=== PATIENT | female | born 1990 | race American Indian/Alaskan Native ===

== ENCOUNTER 2018-11-02 22:34 | Emergency (ER) | payer MEDICAID ==
[2018-11-03 00:17] VITALS: BP 129/68
[2018-11-03] MEDS ORDERED: TYLENOL PO ONE (00:22)
[2018-11-03] MEDS ORDERED: TYLENOL ONE (00:23)
[2018-11-03 00:59] LABS: Basophils # (Auto) 0.1 K/mm3 (0.0-0.1); Basophils % (Auto) 0.7 % (0.0-1.8); Eosinophils # (Auto) 0.1 K/mm3 (0.0-0.4); Eosinophils % (Auto) 0.9 % (0.0-4.3); Hematocrit 22.1 % (30.3-42.9); Hemoglobin 8.3 gm/dl (10.1-14.3); Lymphocytes # (Auto) 1.5 K/mm3 (1.2-5.4); Lymphocytes % (Auto) 15.7 % (13.4-35.0); Mean Corpuscular Volume 85 fl (79-97); Monocytes # (Auto) 0.8 K/mm3 (0.0-0.8); Monocytes % (Auto) 8.5 % (0.0-7.3); Platelet Count 322 K/mm3 (140-440); Red Cell Distribution Width 19.2 % (13.2-15.2)
[2018-11-03 01:27] LABS: Alanine Aminotransferase 16 units/L (7-56); Albumin 4.4 g/dL (3.9-5); BUN/Creatinine Ratio 22; Blood Urea Nitrogen 11 mg/dL (7-17); Calcium 8.8 mg/dL (8.4-10.2); Hemolysis Index 10
[2018-11-03 01:49] LABS: Mean Corpuscular HGB Conc 37 % (30-34)
--- NOTE | 2018-11-06 16:51 | Emergency Department Report ---
Blank Doc - Documentation Documentation: Patient left the emergency department before being seen by a provider
== END 2018-11-03 05:00 | disposition left against medical advice (07) ==
LOC: ED 22:34
DX: R53.83 Other fatigue (principal); Z53.21 Procedure and treatment not carried out due to patient leaving prior to being seen by health care provider
CPT/HCPCS: 36415; 80053; 85025; 93005; 93010

== ENCOUNTER 2018-11-03 16:27 | Inpatient (IN) | payer MEDICAID ==
--- NOTE | 2018-11-03 17:08 | Event Note ---
ED Screening Note Date of service: 11/03/18 Time: 17:08 ED Screening Note: This is a 28 y.o. F. that presents to the ER with fever and fatigue. PMH of anemia Patient came to the ER last night and LWT. This initial assessment/diagnostic orders/clinical plan/treatment(s) is/are subject to change based on patients health status, clinical progression and re- assessment by fellow clinical providers in the ED. Further treatment and workup at subsequent clinical providers discretion. Patient/guardian urged not to elope from the ED as their condition may be serious if not clinically assessed and managed. Initial orders include: Review Labs from yesterday
[2018-11-03] MEDS ORDERED: NACL 0.9% 1000 ML IV ONE (20:09)
[2018-11-03] MEDS ORDERED: TYLENOL PO ONE (20:23)
--- NOTE | 2018-11-03 20:37 | Emergency Department Report ---
ED Fever HPI - General Chief Complaint: Fever Stated Complaint: FEVER/CHILLS Time Seen by Provider: 11/03/18 17:08 Source: patient, old records Exam Limitations: no limitations - History of Present Illness Initial Comments: 28-year-old female with a past medical history of previous cholecystectomy due to gallstones as a child presents to the hospital with complaints of fever, body aches, and chills for the past 4 days. Generalized aches are rated 8/10 and intensity. Patient complains of generalized fatigue. She denies cough, shortness of breath, chest pain, back pain, nausea, vomiting, diarrhea, dysuria, recent travel, or known sick contacts. Her primary care doctor is affiliated with [facility]. Patient was here yesterday and had labs drawn but left prior to M.D. evaluation. She drinks etoh on occasion and denies recent tylenol ingestion ED Review of Systems ROS: Stated complaint: FEVER/CHILLS Other details as noted in HPI Comment: All other systems reviewed and negative ED Past Medical Hx - Past Medical History Previous Medical History?: No - Surgical History Past Surgical History?: Yes Hx Cholecystectomy: Yes - Social History Smoking Status: Never Smoker Substance Use Type: None - Medications Home Medications: Home Medications Medication Instructions Recorded Confirmed Last Taken Type No Known Home Medications [No 11/03/18 11/03/18 Unknown History Reported Home Medications] ED Physical Exam - General Limitations: No Limitations - Other Other exam information: General: No limitations, patient is alert in no acute distress Head exam: Atraumatic, normocephalic Eyes exam: Jaundice/icteric sclera ENT: Moist mucous membrane Neck exam: Normal inspection, full range of motion, no meningismus nontender Respiratory exam: Clear to auscultation bilateral, no wheezes, rales, crackles Cardiovascular: Normal rate and rhythm, normal heart sounds Abdomen: Soft, nondistended, and nontender, with normal bowel sounds, no rebound, or guarding Extremity: Full range of motion, bilateral ankle swelling, Back: Normal Inspection, full range of motion, no tenderness Neurologic: Alert, oriented x3, cranial nerves intact, no motor or sensory deficit Psychiatric: normal affect, normal mood Skin: Warm, dry, intact ED Course Vital Signs 11/03/18 11/03/18 11/03/18 17:03 20:02 20:33 Temperature 100 F H 99.3 F Pulse Rate 128 H 113 H Respiratory 18 16 16 Rate Blood Pressure 114/93 Blood Pressure 119/67 [Left] O2 Sat by Pulse 100 100 Oximetry 11/03/18 11/03/18 11/03/18 21:00 21:33 22:00 Temperature Pulse Rate 115 H 112 H Respiratory 22 18 26 H Rate Blood Pressure 119/67 112/63 Blood Pressure [Left] O2 Sat by Pulse 100 100 Oximetry 11/03/18 11/04/18 11/04/18 23:53 02:00 04:12 Temperature 98.7 F Pulse Rate 103 H 108 H 106 H Respiratory 19 20 16 Rate Blood Pressure 112/57 112/57 116/43 Blood Pressure [Left] O2 Sat by Pulse 99 99 100 Oximetry - Consultations Consultation #1: 11/04/18 00:51 case d/w Dr Julio, agrees finding of both a mixed picture for hemolysis and possible primary liver problem. Type and screen and yennifer added to labs. Schistocytes ordered and are still pending. 11/04/18 01:21 DR Carolina, GI thinks findings more suggestive of hemolyitc anemia as opposed to primary liver issue. ED Medical Decision Making - Lab Data Result diagrams: 11/04/18 02:29 11/04/18 03:29 Lab Results 11/03/18 11/03/18 11/03/18 Range/Units 20:17 20:17 20:17 WBC (4.5-11.0) K/mm3 RBC (3.65-5.03) M/mm3 Hgb Hct (30.3-42.9) % MCV (79-97) fl MCH MCHC RDW (13.2-15.2) % Plt Count (140-440) K/mm3 Lymph % (Auto) (13.4-35.0) % [place] % (Auto) (0.0-7.3) % Eos % (Auto) (0.0-4.3) % Baso % (Auto) (0.0-1.8) % Lymph # (1.2-5.4) K/mm3 [place] # (0.0-0.8) K/mm3 Eos # (0.0-0.4) K/mm3 Baso # (0.0-0.1) K/mm3 Add Manual Diff Total Counted Seg Neutrophils % (40.0-70.0) % Seg Neuts % (Manual) (40.0-70.0) % Band Neutrophils % % Lymphocytes % (Manual) (13.4-35.0) % Reactive Lymphs % (Man) % Monocytes % (Manual) (0.0-7.3) % Eosinophils % (Manual) (0.0-4.3) % Basophils % (Manual) (0.0-1.8) % Metamyelocytes % % Myelocytes % % Promyelocytes % % Blast Cells % % Nucleated RBC % Seg Neutrophils # (1.8-7.7) K/mm3 Seg Neutrophils # Man (1.8-7.7) K/mm3 Band Neutrophils # K/mm3 Lymphocytes # (Manual) (1.2-5.4) K/mm3 Abs React Lymphs (Man) K/mm3 Monocytes # (Manual) (0.0-0.8) K/mm3 Eosinophils # (Manual) (0.0-0.4) K/mm3 Basophils # (Manual) (0.0-0.1) K/mm3 Metamyelocytes # K/mm3 Myelocytes # K/mm3 Promyelocytes # K/mm3 Blast Cells # K/mm3 WBC Morphology Hypersegmented Neuts Hyposegmented Neuts Hypogranular Neuts Smudge Cells Toxic Granulation Toxic Vacuolation Dohle Bodies Pelger-Huet Anomaly Sue Rods Platelet Estimate Clumped Platelets Plt Clumps, EDTA Large Platelets Giant Platelets Platelet Satelliting Plt Morphology Comment RBC Morphology Dimorphic RBCs Polychromasia Hypochromasia Poikilocytosis Anisocytosis Microcytosis Macrocytosis Spherocytes Pappenheimer Bodies Sickle Cells Target Cells Tear Drop Cells Ovalocytes Helmet Cells [place] Bodies [place] Rings [place] Cells Bite Cells Crenated Cell Elliptocytes Acanthocytes (Spur) Rouleaux Hemoglobin C Crystals Schistocytes Malaria parasites Percent Retic (0.78-2.58) % Neal Bodies Hem Pathologist Commnt PT 14.4 (12.2-14.9) Sec. INR 1.15 H (0.87-1.13) APTT 24.4 (24.2-36.6) Sec. VBG pH (7.320-7.420) Sodium (137-145) mmol/L Potassium (3.6-5.0) mmol/L Chloride (98-107) mmol/L Carbon Dioxide (22-30) mmol/L Anion Gap mmol/L BUN (7-17) mg/dL Creatinine (0.7-1.2) mg/dL Estimated GFR ml/min BUN/Creatinine Ratio % Glucose (65-100) mg/dL Lactic Acid 1.20 (0.7-2.0) mmol/L Calcium (8.4-10.2) mg/dL Magnesium (1.7-2.3) mg/dL Total Bilirubin (0.1-1.2) mg/dL Direct Bilirubin (0-0.2) mg/dL Indirect Bilirubin mg/dL AST (5-40) units/L ALT (7-56) units/L Alkaline Phosphatase (35-129) units/L Lactate Dehydrogenase (91-180) units/L Total Protein (6.3-8.2) g/dL Albumin (3.9-5) g/dL Albumin/Globulin Ratio % Lipase (13-60) units/L HCG, Qual Negative (Negative) Urine Color (Yellow) Urine Turbidity (Clear) Urine pH (5.0-7.0) Ur Specific [place] (1.003-1.030) Urine Protein (Negative) mg/dL Urine Glucose (UA) (Negative) mg/dL Urine Ketones (Negative) mg/dL Urine Blood (Negative) Urine Nitrite (Negative) Urine Bilirubin (Negative) Urine Urobilinogen (<2.0) mg/dL Ur Leukocyte Esterase (Negative) Urine WBC (Auto) (0.0-6.0) /HPF Urine RBC (Auto) (0.0-6.0) /HPF U Epithel Cells (Auto) (0-13.0) /HPF Urine Bacteria (Auto) (Negative) /HPF Urine Mucus /HPF HIV 1&2 Antibody Rapid (Non React) HIV P24 Antigen (Non React) Schistocytes Smear Blood Type Antibody Screen Direct Antiglob Test PATRIC, Poly Interpret 11/03/18 11/03/18 11/03/18 Range/Units 20:17 20:17 20:17 WBC (4.5-11.0) K/mm3 RBC (3.65-5.03) M/mm3 Hgb Hct (30.3-42.9) % MCV (79-97) fl MCH MCHC RDW (13.2-15.2) % Plt Count (140-440) K/mm3 Lymph % (Auto) (13.4-35.0) % [place] % (Auto) (0.0-7.3) % Eos % (Auto) (0.0-4.3) % Baso % (Auto) (0.0-1.8) % Lymph # (1.2-5.4) K/mm3 [place] # (0.0-0.8) K/mm3 Eos # (0.0-0.4) K/mm3 Baso # (0.0-0.1) K/mm3 Add Manual Diff Total Counted Seg Neutrophils % (40.0-70.0) % Seg Neuts % (Manual) (40.0-70.0) % Band Neutrophils % % Lymphocytes % (Manual) (13.4-35.0) % Reactive Lymphs % (Man) % Monocytes % (Manual) (0.0-7.3) % Eosinophils % (Manual) (0.0-4.3) % Basophils % (Manual) (0.0-1.8) % Metamyelocytes % % Myelocytes % % Promyelocytes % % Blast Cells % % Nucleated RBC % Seg Neutrophils # (1.8-7.7) K/mm3 Seg Neutrophils # Man (1.8-7.7) K/mm3 Band Neutrophils # K/mm3 Lymphocytes # (Manual) (1.2-5.4) K/mm3 Abs React Lymphs (Man) K/mm3 Monocytes # (Manual) (0.0-0.8) K/mm3 Eosinophils # (Manual) (0.0-0.4) K/mm3 Basophils # (Manual) (0.0-0.1) K/mm3 Metamyelocytes # K/mm3 Myelocytes # K/mm3 Promyelocytes # K/mm3 Blast Cells # K/mm3 WBC Morphology Hypersegmented Neuts Hyposegmented Neuts Hypogranular Neuts Smudge Cells Toxic Granulation Toxic Vacuolation Dohle Bodies Pelger-Huet Anomaly Sue Rods Platelet Estimate Clumped Platelets Plt Clumps, EDTA Large Platelets Giant Platelets Platelet Satelliting Plt Morphology Comment RBC Morphology Dimorphic RBCs Polychromasia Hypochromasia Poikilocytosis Anisocytosis Microcytosis Macrocytosis Spherocytes Pappenheimer Bodies Sickle Cells Target Cells Tear Drop Cells Ovalocytes Helmet Cells [place] Bodies [place] Rings Tani Cells Bite Cells Crenated Cell Elliptocytes Acanthocytes (Spur) Rouleaux Hemoglobin C Crystals Schistocytes Malaria parasites Percent Retic (0.78-2.58) % Neal Bodies Hem Pathologist Commnt PT (12.2-14.9) Sec. INR (0.87-1.13) APTT (24.2-36.6) Sec. VBG pH 7.513 H (7.320-7.420) Sodium (137-145) mmol/L Potassium (3.6-5.0) mmol/L Chloride (98-107) mmol/L Carbon Dioxide (22-30) mmol/L Anion Gap mmol/L BUN (7-17) mg/dL Creatinine (0.7-1.2) mg/dL Estimated GFR ml/min BUN/Creatinine Ratio % Glucose (65-100) mg/dL Lactic Acid (0.7-2.0) mmol/L Calcium (8.4-10.2) mg/dL Magnesium 2.00 (1.7-2.3) mg/dL Total Bilirubin (0.1-1.2) mg/dL Direct Bilirubin (0-0.2) mg/dL Indirect Bilirubin mg/dL AST (5-40) units/L ALT (7-56) units/L Alkaline Phosphatase (35-129) units/L Lactate Dehydrogenase (91-180) units/L Total Protein (6.3-8.2) g/dL Albumin (3.9-5) g/dL Albumin/Globulin Ratio % Lipase 15 (13-60) units/L HCG, Qual (Negative) Urine Color (Yellow) Urine Turbidity (Clear) Urine pH (5.0-7.0) Ur Specific [place] (1.003-1.030) Urine Protein (Negative) mg/dL Urine Glucose (UA) (Negative) mg/dL Urine Ketones (Negative) mg/dL Urine Blood (Negative) Urine Nitrite (Negative) Urine Bilirubin (Negative) Urine Urobilinogen (<2.0) mg/dL Ur Leukocyte Esterase (Negative) Urine WBC (Auto) (0.0-6.0) /HPF Urine RBC (Auto) (0.0-6.0) /HPF U Epithel Cells (Auto) (0-13.0) /HPF Urine Bacteria (Auto) (Negative) /HPF Urine Mucus /HPF HIV 1&2 Antibody Rapid (Non React) HIV P24 Antigen (Non React) Schistocytes Smear Blood Type Antibody Screen Direct Antiglob Test PATRIC, Poly Interpret 11/03/18 11/03/18 11/03/18 Range/Units 20:21 21:01 21:56 WBC 10.4 (4.5-11.0) K/mm3 RBC 2.48 L (3.65-5.03) M/mm3 Hgb Not Reportable Hct 20.4 L (30.3-42.9) % MCV 84 (79-97) fl MCH Not Reportable MCHC Not Reportable RDW 20.4 H (13.2-15.2) % Plt Count 320 (140-440) K/mm3 Lymph % (Auto) 24.8 (13.4-35.0) % [place] % (Auto) 10.0 H (0.0-7.3) % Eos % (Auto) 1.0 (0.0-4.3) % Baso % (Auto) 0.5 (0.0-1.8) % Lymph # 2.6 (1.2-5.4) K/mm3 [place] # 1.0 H (0.0-0.8) K/mm3 Eos # 0.1 (0.0-0.4) K/mm3 Baso # 0.1 (0.0-0.1) K/mm3 Add Manual Diff Total Counted Seg Neutrophils % 63.7 (40.0-70.0) % Seg Neuts % (Manual) (40.0-70.0) % Band Neutrophils % % Lymphocytes % (Manual) (13.4-35.0) % Reactive Lymphs % (Man) % Monocytes % (Manual) (0.0-7.3) % Eosinophils % (Manual) (0.0-4.3) % Basophils % (Manual) (0.0-1.8) % Metamyelocytes % % Myelocytes % % Promyelocytes % % Blast Cells % % Nucleated RBC % Seg Neutrophils # 6.6 (1.8-7.7) K/mm3 Seg Neutrophils # Man (1.8-7.7) K/mm3 Band Neutrophils # K/mm3 Lymphocytes # (Manual) (1.2-5.4) K/mm3 Abs React Lymphs (Man) K/mm3 Monocytes # (Manual) (0.0-0.8) K/mm3 Eosinophils # (Manual) (0.0-0.4) K/mm3 Basophils # (Manual) (0.0-0.1) K/mm3 Metamyelocytes # K/mm3 Myelocytes # K/mm3 Promyelocytes # K/mm3 Blast Cells # K/mm3 WBC Morphology Hypersegmented Neuts Hyposegmented Neuts Hypogranular Neuts Smudge Cells Toxic Granulation Toxic Vacuolation Dohle Bodies Pelger-Huet Anomaly Sue Rods Platelet Estimate Clumped Platelets Plt Clumps, EDTA Large Platelets Giant Platelets Platelet Satelliting Plt Morphology Comment RBC Morphology Dimorphic RBCs Polychromasia Hypochromasia Poikilocytosis Anisocytosis Microcytosis Macrocytosis Spherocytes Pappenheimer Bodies Sickle Cells Target Cells Tear Drop Cells Ovalocytes Helmet Cells [place] Bodies [place] Rings Tani Cells Bite Cells Crenated Cell Elliptocytes Acanthocytes (Spur) Rouleaux Hemoglobin C Crystals Schistocytes Malaria parasites Percent Retic (0.78-2.58) % Neal Bodies Hem Pathologist Commnt PT (12.2-14.9) Sec. INR (0.87-1.13) APTT (24.2-36.6) Sec. VBG pH (7.320-7.420) Sodium 133 L (137-145) mmol/L Potassium 3.9 (3.6-5.0) mmol/L Chloride 98.2 (98-107) mmol/L Carbon Dioxide 24 (22-30) mmol/L Anion Gap 15 mmol/L BUN 8 (7-17) mg/dL Creatinine 0.3 L (0.7-1.2) mg/dL Estimated GFR > 60 ml/min BUN/Creatinine Ratio 27 % Glucose 97 (65-100) mg/dL Lactic Acid (0.7-2.0) mmol/L Calcium 8.7 (8.4-10.2) mg/dL Magnesium (1.7-2.3) mg/dL Total Bilirubin 8.30 H (0.1-1.2) mg/dL Direct Bilirubin 8.0 H (0-0.2) mg/dL Indirect Bilirubin 0.3 mg/dL AST 42 H (5-40) units/L ALT 19 (7-56) units/L Alkaline Phosphatase 41 (35-129) units/L Lactate Dehydrogenase 672 H (91-180) units/L Total Protein 7.6 (6.3-8.2) g/dL Albumin 3.9 (3.9-5) g/dL Albumin/Globulin Ratio 1.1 % Lipase (13-60) units/L HCG, Qual (Negative) Urine Color [place] (Yellow) Urine Turbidity Slightly-cloudy (Clear) Urine pH 6.0 (5.0-7.0) Ur Specific [place] 1.025 (1.003-1.030) Urine Protein 100 mg/dl (Negative) mg/dL Urine Glucose (UA) Neg (Negative) mg/dL Urine Ketones Neg (Negative) mg/dL Urine Blood Neg (Negative) Urine Nitrite Neg (Negative) Urine Bilirubin Neg (Negative) Urine Urobilinogen 4.0 (<2.0) mg/dL Ur Leukocyte Esterase Lg (Negative) Urine WBC (Auto) 19.0 H (0.0-6.0) /HPF Urine RBC (Auto) 3.0 (0.0-6.0) /HPF U Epithel Cells (Auto) 18.0 H (0-13.0) /HPF Urine Bacteria (Auto) 1+ (Negative) /HPF Urine Mucus Few /HPF HIV 1&2 Antibody Rapid (Non React) HIV P24 Antigen (Non React) Schistocytes Smear Blood Type Antibody Screen Direct Antiglob Test PATRIC, Poly Interpret 11/03/18 11/03/18 11/04/18 Range/Units 21:56 23:12 01:01 WBC (4.5-11.0) K/mm3 RBC (3.65-5.03) M/mm3 Hgb Hct (30.3-42.9) % MCV (79-97) fl MCH MCHC RDW (13.2-15.2) % Plt Count (140-440) K/mm3 Lymph % (Auto) (13.4-35.0) % [place] % (Auto) (0.0-7.3) % Eos % (Auto) (0.0-4.3) % Baso % (Auto) (0.0-1.8) % Lymph # (1.2-5.4) K/mm3 [place] # (0.0-0.8) K/mm3 Eos # (0.0-0.4) K/mm3 Baso # (0.0-0.1) K/mm3 Add Manual Diff Total Counted Seg Neutrophils % (40.0-70.0) % Seg Neuts % (Manual) (40.0-70.0) % Band Neutrophils % % Lymphocytes % (Manual) (13.4-35.0) % Reactive Lymphs % (Man) % Monocytes % (Manual) (0.0-7.3) % Eosinophils % (Manual) (0.0-4.3) % Basophils % (Manual) (0.0-1.8) % Metamyelocytes % % Myelocytes % % Promyelocytes % % Blast Cells % % Nucleated RBC % Seg Neutrophils # (1.8-7.7) K/mm3 Seg Neutrophils # Man (1.8-7.7) K/mm3 Band Neutrophils # K/mm3 Lymphocytes # (Manual) (1.2-5.4) K/mm3 Abs React Lymphs (Man) K/mm3 Monocytes # (Manual) (0.0-0.8) K/mm3 Eosinophils # (Manual) (0.0-0.4) K/mm3 Basophils # (Manual) (0.0-0.1) K/mm3 Metamyelocytes # K/mm3 Myelocytes # K/mm3 Promyelocytes # K/mm3 Blast Cells # K/mm3 WBC Morphology Hypersegmented Neuts Hyposegmented Neuts Hypogranular Neuts Smudge Cells Toxic Granulation Toxic Vacuolation Dohle Bodies Pelger-Huet Anomaly Sue Rods Platelet Estimate Clumped Platelets Plt Clumps, EDTA Large Platelets Giant Platelets Platelet Satelliting Plt Morphology Comment RBC Morphology Dimorphic RBCs Polychromasia Hypochromasia Poikilocytosis Anisocytosis Microcytosis Macrocytosis Spherocytes Pappenheimer Bodies Sickle Cells Target Cells Tear Drop Cells Ovalocytes Helmet Cells [place] Bodies [place] Rings Tani Cells Bite Cells Crenated Cell Elliptocytes Acanthocytes (Spur) Rouleaux Hemoglobin C Crystals Schistocytes Malaria parasites Percent Retic 12.96 H (0.78-2.58) % Neal Bodies Hem Pathologist Commnt PT (12.2-14.9) Sec. INR (0.87-1.13) APTT (24.2-36.6) Sec. VBG pH (7.320-7.420) Sodium (137-145) mmol/L Potassium (3.6-5.0) mmol/L Chloride (98-107) mmol/L Carbon Dioxide (22-30) mmol/L Anion Gap mmol/L BUN (7-17) mg/dL Creatinine (0.7-1.2) mg/dL Estimated GFR ml/min BUN/Creatinine Ratio % Glucose (65-100) mg/dL Lactic Acid 0.70 (0.7-2.0) mmol/L Calcium (8.4-10.2) mg/dL Magnesium (1.7-2.3) mg/dL Total Bilirubin (0.1-1.2) mg/dL Direct Bilirubin (0-0.2) mg/dL Indirect Bilirubin mg/dL AST (5-40) units/L ALT (7-56) units/L Alkaline Phosphatase (35-129) units/L Lactate Dehydrogenase (91-180) units/L Total Protein (6.3-8.2) g/dL Albumin (3.9-5) g/dL Albumin/Globulin Ratio % Lipase (13-60) units/L HCG, Qual (Negative) Urine Color (Yellow) Urine Turbidity (Clear) Urine pH (5.0-7.0) Ur Specific [place] (1.003-1.030) Urine Protein (Negative) mg/dL Urine Glucose (UA) (Negative) mg/dL Urine Ketones (Negative) mg/dL Urine Blood (Negative) Urine Nitrite (Negative) Urine Bilirubin (Negative) Urine Urobilinogen (<2.0) mg/dL Ur Leukocyte Esterase (Negative) Urine WBC (Auto) (0.0-6.0) /HPF Urine RBC (Auto) (0.0-6.0) /HPF U Epithel Cells (Auto) (0-13.0) /HPF Urine Bacteria (Auto) (Negative) /HPF Urine Mucus /HPF HIV 1&2 Antibody Rapid (Non React) HIV P24 Antigen (Non React) Schistocytes Smear None seen Blood Type O POSITIVE Antibody Screen Negative Direct Antiglob Test PATRIC, Poly Interpret 11/04/18 11/04/18 Range/Units 01:01 02:29 WBC 8.9 (4.5-11.0) K/mm3 RBC 2.09 L (3.65-5.03) M/mm3 Hgb [place] Hct 18.0 L* (30.3-42.9) % MCV 86 (79-97) fl MCH [place] MCHC [place] RDW 20.5 H (13.2-15.2) % Plt Count 259 (140-440) K/mm3 Lymph % (Auto) (13.4-35.0) % [place] % (Auto) (0.0-7.3) % Eos % (Auto) (0.0-4.3) % Baso % (Auto) (0.0-1.8) % Lymph # (1.2-5.4) K/mm3 [place] # (0.0-0.8) K/mm3 Eos # (0.0-0.4) K/mm3 Baso # (0.0-0.1) K/mm3 Add Manual Diff Complete Total Counted 100 Seg Neutrophils % (40.0-70.0) % Seg Neuts % (Manual) 70.0 (40.0-70.0) % Band Neutrophils % 2.0 % Lymphocytes % (Manual) 23.0 (13.4-35.0) % Reactive Lymphs % (Man) 0 % Monocytes % (Manual) 3.0 (0.0-7.3) % Eosinophils % (Manual) 2.0 (0.0-4.3) % Basophils % (Manual) 0 (0.0-1.8) % Metamyelocytes % 0 % Myelocytes % 0 % Promyelocytes % 0 % Blast Cells % 0 % Nucleated RBC % Not Reportable Seg Neutrophils # (1.8-7.7) K/mm3 Seg Neutrophils # Man 6.2 (1.8-7.7) K/mm3 Band Neutrophils # 0.2 K/mm3 Lymphocytes # (Manual) 2.0 (1.2-5.4) K/mm3 Abs React Lymphs (Man) 0.0 K/mm3 Monocytes # (Manual) 0.3 (0.0-0.8) K/mm3 Eosinophils # (Manual) 0.2 (0.0-0.4) K/mm3 Basophils # (Manual) 0.0 (0.0-0.1) K/mm3 Metamyelocytes # 0.0 K/mm3 Myelocytes # 0.0 K/mm3 Promyelocytes # 0.0 K/mm3 Blast Cells # 0.0 K/mm3 WBC Morphology Not Reportable Hypersegmented Neuts Not Reportable Hyposegmented Neuts Not Reportable Hypogranular Neuts Not Reportable Smudge Cells Not Reportable Toxic Granulation Not Reportable Toxic Vacuolation Not Reportable Dohle Bodies Not Reportable Pelger-Huet Anomaly Not Reportable Sue Rods Not Reportable Platelet Estimate Consistent w auto Clumped Platelets Not Reportable Plt Clumps, EDTA Not Reportable Large Platelets Not Reportable Giant Platelets Not Reportable Platelet Satelliting Not Reportable Plt Morphology Comment Not Reportable RBC Morphology Not Reportable Dimorphic RBCs Yes Polychromasia 1+ Hypochromasia Not Reportable Poikilocytosis Not Reportable Anisocytosis 1+ Microcytosis Few Macrocytosis Not Reportable Spherocytes 1+ Pappenheimer Bodies Not Reportable Sickle Cells Not Reportable Target Cells Not Reportable Tear Drop Cells Rare Ovalocytes Few Helmet Cells Not Reportable [place] Bodies Not Reportable [place] Rings Not Reportable Tani Cells Not Reportable Bite Cells Not Reportable Crenated Cell Not Reportable Elliptocytes Not Reportable Acanthocytes (Spur) Not Reportable Rouleaux Not Reportable Hemoglobin C Crystals Not Reportable Schistocytes Not Reportable Malaria parasites Not Reportable Percent Retic (0.78-2.58) % Neal Bodies Not Reportable Hem Pathologist Commnt No PT (12.2-14.9) Sec. INR (0.87-1.13) APTT (24.2-36.6) Sec. VBG pH (7.320-7.420) Sodium (137-145) mmol/L Potassium (3.6-5.0) mmol/L Chloride (98-107) mmol/L Carbon Dioxide (22-30) mmol/L Anion Gap mmol/L BUN (7-17) mg/dL Creatinine (0.7-1.2) mg/dL Estimated GFR ml/min BUN/Creatinine Ratio % Glucose (65-100) mg/dL Lactic Acid (0.7-2.0) mmol/L Calcium (8.4-10.2) mg/dL Magnesium (1.7-2.3) mg/dL Total Bilirubin (0.1-1.2) mg/dL Direct Bilirubin (0-0.2) mg/dL Indirect Bilirubin mg/dL AST (5-40) units/L ALT (7-56) units/L Alkaline Phosphatase (35-129) units/L Lactate Dehydrogenase (91-180) units/L Total Protein (6.3-8.2) g/dL Albumin (3.9-5) g/dL Albumin/Globulin Ratio % Lipase (13-60) units/L HCG, Qual (Negative) Urine Color (Yellow) Urine Turbidity (Clear) Urine pH (5.0-7.0) Ur Specific [place] (1.003-1.030) Urine Protein (Negative) mg/dL Urine Glucose (UA) (Negative) mg/dL Urine Ketones (Negative) mg/dL Urine Blood (Negative) Urine Nitrite (Negative) Urine Bilirubin (Negative) Urine Urobilinogen (<2.0) mg/dL Ur Leukocyte Esterase (Negative) Urine WBC (Auto) (0.0-6.0) /HPF Urine RBC (Auto) (0.0-6.0) /HPF U Epithel Cells (Auto) (0-13.0) /HPF Urine Bacteria (Auto) (Negative) /HPF Urine Mucus /HPF HIV 1&2 Antibody Rapid Non react (Non React) HIV P24 Antigen Non react (Non React) Schistocytes Smear Blood Type Antibody Screen Direct Antiglob Test Negative PATRIC, Poly Interpret Negative - EKG Data -: EKG Interpreted by Pa EKG shows normal: sinus rhythm, axis (qrs 12), QRS complexes (qrsd 85), ST-T waves (no stemi) Rate: tachycardia (112) - Radiology Data Radiology results: report reviewed CT ABDOMEN AND PELVIS WITH IV CONTRAST INDICATION: fever, elevated direct bili, anemia. COMPARISON: None available. TECHNIQUE: All CT scans at this facility use dose modulation, automated exposure control, iterative reconstruction or weight based dosing, when appropriate, to reduce radiation dose to as low as reasonably achievable. FINDINGS: Lung Bases: Clear. Skeletal System: No acute abnormality. ABDOMEN: Liver: The liver is enlarged but otherwise unremarkable. Gallbladder: Removed. Bile Ducts: Normal. Pancreas: Normal. Spleen: Enlarged, otherwise unremarkable. Adrenals: Normal. Right Kidney: Normal. Left Kidney: Normal. Stomach and Bowel: Normal. Lymph Nodes: No significant adenopathy. Aorta: No significant abnormality. Additional Findings: None. PELVIS: Colon: Normal aside from mild constipation.. Urinary Bladder and Distal Ureters: Normal. Appendix: Normal. Lymph Nodes: No significant adenopathy. Additional Findings: Bilateral ovarian cysts are likely physiologic. There is trace free fluid in the cul-de-sac. IMPRESSION: 1. Hepatosplenomegaly. 2. Bilateral ovarian cysts and trace free fluid in the cul-de-sac are likely physiologic. - Medical Decision Making She did receive IV Rocephin for possible UTI however, there is a high number of epithelial cells suggesting possible contamination. Patient having a combined picture of both hemolysis picture given elevated reticular count site, anemia, and elevated LDH however, patient has elevated direct bilirubin suggestive of a primary liver problem. In less than 24 hours patient has had a significant drop in hemoglobin. Case was discussed with hematology contract specialist Dr. Overton and consult requested from GI. CT shows hepatosplenomegaly. Patient will be admitted to the hospitalist service for further workup and evaluation. Patient will be admitted to the hospitalist service for further workup and evaluation. - Differential Diagnosis hemolytic anemia, liver disease, biliary obstruction, TTP Critical Care Time: No Critical care attestation.: If time is entered above; I have spent that time in minutes in the direct care of this critically ill patient, excluding procedure time. ED Disposition Clinical Impression: Fever, Hyperbilirubinemia, Anemia, Hepatosplenomegaly, Hemolytic anemia Disposition: [id number] OP ADMIT IP TO THIS HOSP Is pt being admited?: Yes Condition: Stable Time of Disposition: 00:55 ([facility]
[2018-11-03 20:53] LABS: Bacteria,Urine 1+ /HPF (Negative); Bilirubin,Urine NEG (Negative); Blood,Urine NEG (Negative); Color,Urine Amber (Yellow); Mucus,Urine FEW /HPF
[2018-11-03 21:25] LABS: INR 1.15 (0.87-1.13)
[2018-11-03 21:26] LABS: Partial Thromboplastin Time 24.4 Sec. (24.2-36.6)
[2018-11-03] MEDS ORDERED: ROCEPHIN/NS 1 GM/50 ML 1 GM/50 ML BAG IV ONE (21:30)
[2018-11-03 21:31] LABS: Alanine Aminotransferase 19 units/L (7-56); Albumin 3.9 g/dL (3.9-5); BUN/Creatinine Ratio 27; Blood Urea Nitrogen 8 mg/dL (7-17); Calcium 8.7 mg/dL (8.4-10.2); Hemolysis Index 65
[2018-11-03 22:16] LABS: Basophils # (Auto) 0.1 K/mm3 (0.0-0.1); Basophils % (Auto) 0.5 % (0.0-1.8); Eosinophils # (Auto) 0.1 K/mm3 (0.0-0.4); Lymphocytes # (Auto) 2.6 K/mm3 (1.2-5.4); Lymphocytes % (Auto) 24.8 % (13.4-35.0); Mean Corpuscular Volume 84 fl (79-97); Platelet Count 320 K/mm3 (140-440); Red Blood Count 2.48 M/mm3 (3.65-5.03)
[2018-11-03 23:07] LABS: Red Cell Distribution Width 20.4 % (13.2-15.2)
[2018-11-03 23:11] LABS: Hematocrit 20.4 % (30.3-42.9)
--- NOTE | 2018-11-04 00:29 | Cat Scan Report ---
CT ABDOMEN AND PELVIS WITH IV CONTRAST INDICATION: fever, elevated direct bili, anemia. COMPARISON: None available. TECHNIQUE: All CT scans at this facility use dose modulation, automated exposure control, iterative reconstructi on or weight based dosing, when appropriate, to reduce radiation dose to as low as reasonably achieva ble. FINDINGS: Lung Bases: Clear. Skeletal System: No acute abnormality. ABDOMEN: Liver: The liver is enlarged but otherwise unremarkable. Gallbladder: Removed. Bile Ducts: Normal. Pancreas: Normal. Spleen: Enlarged, otherwise unremarkable. Adrenals: Normal. Right Kidney: Normal. Left Kidney: Normal. Stomach and Bowel: Normal. Lymph Nodes: No significant adenopathy. Aorta: No significant abnormality. Additional Findings: None. PELVIS: Colon: Normal aside from mild constipation.. Urinary Bladder and Distal Ureters: Normal. Appendix: Normal. Lymph Nodes: No significant adenopathy. Additional Findings: Bilateral ovarian cysts are likely physiologic. There is trace free fluid in the cul-de-sac. IMPRESSION: 1. Hepatosplenomegaly. 2. Bilateral ovarian cysts and trace free fluid in the cul-de-sac are likely physiologic. Signer Name: Wallace Nathan MD Signed: 11/04/2018 12:25 AM Workstation Name: [id number]
[2018-11-04 01:33] LABS: Smear for Schistocytes None Seen
--- NOTE | 2018-11-04 02:25 | History and Physical Report ---
History of Present Illness Date of examination: 11/04/18 History of present illness: 28-year-old woman with a metabolic problem comes emergency room with complaints of fever, generalized weakness, fatigue and body aches 4 days which denies sick contacts, recent travel, no medication, herbal supplements, new foods or sick contacts or prior transfusion to her recollection. She states she was checked for HIV 2 years ago which was negative Review of systems Constitutional: no weight loss, chills, fever Ears, eyes, nose, mouth and throat: no nasal congestion, no nasal discharge, no sinus pressure, no vision change, no red eye. Neck: No neck pain or rigidity. Cardiovascular: no palpitations, chest pain Respiratory: no cough, shortness of breath Gastrointestinal: no hematochezia, abdominal pain Genitourinary : no frequency , no hematuria Musculoskeletal: no joint swelling or muscle ache Integumentary: no rash, no pruritis Neurological: no parathesias, no focal weakness Endocrine: no cold or heat intolerance, no polyuria or polydipsia Hematologic/Lymphatic: no easy bruising, no easy bleed Allergic/Immunologic: no urticaria, no angioedema. PAST MEDICAL HISTORY:None PAST SURGICAL HISTORY: Cholecystectomy SOCIAL HISTORY: Denies alcohol, drugs, tobacco FAMILY HISTORY: Hypertension Medications and Allergies Allergies Allergy/AdvReac Type Severity Reaction Status Date / Time No Known Allergies Allergy Verified 11/03/18 00:42 Home Medications Medication Instructions Recorded Confirmed Last Taken Type Folic Acid/Vit B Comp W-C [Renal 1 cap PO QDAY #30 capsule 11/07/18 Unknown Rx Caps] Prednisone [predniSONE (Johnnie) ER 10 mg PO QDAY #20 tablet. 11/07/18 Unknown Rx TAB] Exam - Physical Exam Narrative exam: General Apperance: The patient lying in bed, breathing comfortable, does not apperar toxic HEENT: Normocephalic, atraumatic. Pupils equally round and reactive to light, EOMI,+ sclericterus or JVD or thyromegaly or nodule. , no carotid bruit, mucous membranes moist, no exudate or erythema Heart: S1-S2, regular is rhythm Lungs: Clear to auscultation bilaterally, breathing comfortable Abdomen: Positive bowel sounds, soft, nontender, nondistended, h epatosplenomegaly Extremities: No edema cyanosis clubbing Skin: no rash, nodule, warm and dry Neuro: cranial nerves 2-12 intact, speech is fluent, motor/sensory intact - Constitutional Vitals: Temp Pulse Resp BP Pulse Ox 99.3 F 103 H 19 112/57 99 11/03/18 20:02 11/03/18 23:53 11/03/18 23:53 11/03/18 23:53 11/03/18 23:53 Results - Labs CBC & Chem 7: 11/06/18 08:00 11/06/18 08:00 Labs: Abnormal lab results 11/03/18 11/03/18 11/03/18 Range/Units 20:17 20:17 20:21 RBC (3.65-5.03) M/mm3 Hct (30.3-42.9) % RDW (13.2-15.2) % [place] % (Auto) (0.0-7.3) % [place] # (0.0-0.8) K/mm3 Percent Retic (0.78-2.58) % INR 1.15 H (0.87-1.13) VBG pH 7.513 H (7.320-7.420) Sodium (137-145) mmol/L Creatinine (0.7-1.2) mg/dL Total Bilirubin (0.1-1.2) mg/dL Direct Bilirubin (0-0.2) mg/dL AST (5-40) units/L Lactate Dehydrogenase (91-180) units/L Urine WBC (Auto) 19.0 H (0.0-6.0) /HPF U Epithel Cells (Auto) 18.0 H (0-13.0) /HPF 11/03/18 11/03/18 11/03/18 Range/Units 21:01 21:56 21:56 RBC 2.48 L (3.65-5.03) M/mm3 Hct 20.4 L (30.3-42.9) % RDW 20.4 H (13.2-15.2) % [place] % (Auto) 10.0 H (0.0-7.3) % [place] # 1.0 H (0.0-0.8) K/mm3 Percent Retic 12.96 H (0.78-2.58) % INR (0.87-1.13) VBG pH (7.320-7.420) Sodium 133 L (137-145) mmol/L Creatinine 0.3 L (0.7-1.2) mg/dL Total Bilirubin 8.30 H (0.1-1.2) mg/dL Direct Bilirubin 8.0 H (0-0.2) mg/dL AST 42 H (5-40) units/L Lactate Dehydrogenase 672 H (91-180) units/L Urine WBC (Auto) (0.0-6.0) /HPF U Epithel Cells (Auto) (0-13.0) /HPF - Imaging and Cardiology CT scan - abdomen: report reviewed CT scan - pelvis: report reviewed Assessment and Plan Assessment Jaundice Anemia Fever Hepatosplenomegaly Plan Admit to medicine Start IV fluid, Yennifer' test, schistocytes pending Type and screen blood, check haptoglobin level, follow cultures Hematology and GI was consulted to see the patient Consult ID, case discussed with Dr Pham recommended to obtain Ray-Forrester, CMV and HIV testing DVT prophalaxis Addendum hemoglobin dropped further, her yennifer test negative Transfuse blood, d/w Dr Overton. give benadryl
[2018-11-04] MEDS ORDERED: SODIUM CHLORIDE FLUSH SYRINGE 10 ML IV PRN (02:29)
[2018-11-04] MEDS ORDERED: ZOFRAN IV PRN (02:29)
[2018-11-04] MEDS ORDERED: TYLENOL PO PRN (02:29)
[2018-11-04] MEDS: NACL 0.9% 1000 ML 1,000 ML IV SCH ×2 (02:38→17:02)
[2018-11-04 04:35] LABS: Mean Corpuscular Volume 86 fl (79-97); Platelet Count 259 K/mm3 (140-440); Red Blood Count 2.09 M/mm3 (3.65-5.03)
[2018-11-04 04:35] LABS: Alanine Aminotransferase 20 units/L (7-56); Albumin 3.6 g/dL (3.9-5); BUN/Creatinine Ratio 18; Blood Urea Nitrogen 7 mg/dL (7-17); Calcium 7.8 mg/dL (8.4-10.2); Hemolysis Index 26
[2018-11-04 04:41] LABS: Red Cell Distribution Width 20.5 % (13.2-15.2)
[2018-11-04 05:16] LABS: Anisocytosis 1+; Band Neutrophils # (Manual) 0.2 K/mm3; Basophils % (Manual) 0 % (0.0-1.8); Dimorphic RBC Yes; Total Cells Counted 100
[2018-11-04 05:18] LABS: Spherocytes 1+
[2018-11-04 05:19] LABS: Ovalocytes Few; Platelet Estimate Consistent w Auto; Tear Drop Cells Rare
[2018-11-04] MEDS ORDERED: NACL 0.9% 500 ML 500 ML IV ONE (05:48)
[2018-11-04] MEDS ORDERED: BENADRYL IV ONE (05:49)
--- NOTE | 2018-11-04 07:22 | Event Note ---
Date: 11/04/18 [id number]
[2018-11-04] MEDS: SODIUM CHLORIDE FLUSH SYRINGE 10 ML IV SCH ×2 (10:25→21:17)
[2018-11-04 11:13] LABS: Iron 81 ug/dL (37-170); Total Iron Binding Capacity 160 mcg/dL (250-450)
--- NOTE | 2018-11-04 12:46 | Gastroenterology Consultation ---
<MARYBETH MARINA - Last Filed: 11/04/18 12:50> History of Present Illness - Reason for Consult Consult date: 11/04/18 hyperbilirubinemia Requesting physician: CARMEL GOMEZ - History of Present Illness Patient is a 28 y/o female with PMH of anemia and CCY who presented to ED with c/o fever, generalized weakness, fatigue, and body aches. Upon admission, she was found to have anemia with hyperbilirubinemia to which GI has been consulted. Hematology following. This morning patient was resting in bed w/o acute distress but noted to be somnolent. Currently w/o GI complaints or active signs of GI bleeding. Denies CP, SOB, wt loss, abd pain, N/V, hematemesis, melena, diarrhea, constipation, or hematochezia. No known hx of liver disease. Drinks alcohol occasionally (~3-4 drinks/month). No IV drug use. States her mother has a hx of similar symptoms with etiology unknown (noted to be a poor historian). Patient is previously known to our service. She was seen in 2010 for elevated LFTs (T.isaac 3.4) with labs to include GGT, TRAN, AMA, and hepatitis panel negative but has been lost to f/u. Past History Past Medical History: anemia, other (elevated LFTs) Past Surgical History: cholecystectomy Social history: other (alcohol). denies: smoking Family history: hypertension Medications and Allergies Allergies Allergy/AdvReac Type Severity Reaction Status Date / Time No Known Allergies Allergy Verified 11/03/18 00:42 Home Medications Medication Instructions Recorded Confirmed Last Taken Type No Known Home Medications [No 11/03/18 11/03/18 Unknown History Reported Home Medications] Active Meds: Active Medications Acetaminophen (Tylenol) 650 mg PO Q4H PRN PRN Reason: Pain MILD(1-3)/Fever >100.5/ALVAREZ Last Admin: 11/04/18 05:31 Dose: 650 mg Documented by: Sodium Chloride (Nacl 0.9% 1000 Ml) 1,000 mls @ 125 mls/hr IV DIRECT LISANDRA Last Admin: 11/04/18 02:38 Dose: 125 mls/hr Documented by: Ondansetron HCl (Zofran) 4 mg IV Q8H PRN PRN Reason: Nausea And Vomiting Sodium Chloride (Sodium Chloride Flush Syringe 10 Ml) 10 ml IV BID LISANDRA Last Admin: 11/04/18 10:25 Dose: 10 ml Documented by: Sodium Chloride (Sodium Chloride Flush Syringe 10 Ml) 10 ml IV PRN PRN PRN Reason: LINE FLUSH medications reviewed/updated as required Review of Systems - Review of Systems All systems: negative Constitutional: fatigue, weakness Gastrointestinal: no abdominal pain, no nausea, no vomiting, no hematemesis, no melena, no hematochezia Exam - Constitutional Vital Signs: Temp Pulse Resp BP Pulse Ox 98.6 F 94 H 18 129/64 100 11/04/18 11:32 11/04/18 11:32 11/04/18 11:32 11/04/18 11:32 11/04/18 11:32 General appearance: no acute distress, other (somnolent) - Respiratory Respiratory effort: normal Respiratory: bilateral: CTA - Cardiovascular Rhythm: regular - Gastrointestinal General gastrointestinal: Present: soft, non-tender, non-distended, normal bowel sounds - Labs CBC & Chem 7: 11/04/18 02:29 11/04/18 03:29 Lab Results: Laboratory Results - last 24 hr 11/03/18 11/03/18 11/03/18 20:17 20:17 20:17 WBC RBC Hgb Hct MCV MCH MCHC RDW Plt Count Lymph % (Auto) Geary % (Auto) Eos % (Auto) Baso % (Auto) Lymph # Geary # Eos # Baso # Add Manual Diff Total Counted Seg Neutrophils % Seg Neuts % (Manual) Band Neutrophils % Lymphocytes % (Manual) Reactive Lymphs % (Man) Monocytes % (Manual) Eosinophils % (Manual) Basophils % (Manual) Metamyelocytes % Myelocytes % Promyelocytes % Blast Cells % Nucleated RBC % Seg Neutrophils # Seg Neutrophils # Man Band Neutrophils # Lymphocytes # (Manual) Abs React Lymphs (Man) Monocytes # (Manual) Eosinophils # (Manual) Basophils # (Manual) Metamyelocytes # Myelocytes # Promyelocytes # Blast Cells # Pathologist Review Hypersegmented Neuts Hyposegmented Neuts Hypogranular Neuts Smudge Cells Toxic Granulation Toxic Vacuolation Dohle Bodies Pelger-Huet Anomaly Sue Rods Platelet Estimate Clumped Platelets Plt Clumps, EDTA Large Platelets Giant Platelets Platelet Satelliting Plt Morphology Comment RBC Morphology Dimorphic RBCs Polychromasia Hypochromasia Poikilocytosis Anisocytosis Microcytosis Macrocytosis Spherocytes Pappenheimer Bodies Sickle Cells Target Cells Tear Drop Cells Ovalocytes Helmet Cells [place] Bodies [place] Rings Tani Cells Bite Cells Crenated Cell Elliptocytes Acanthocytes (Spur) Rouleaux Hemoglobin C Crystals Schistocytes Malaria parasites Percent Retic Neal Bodies Hem Pathologist Commnt PT 14.4 INR 1.15 H APTT 24.4 VBG pH Sodium Potassium Chloride Carbon Dioxide Anion Gap BUN Creatinine Estimated GFR BUN/Creatinine Ratio Glucose Lactic Acid 1.20 Calcium Magnesium Iron TIBC Total Bilirubin Direct Bilirubin Indirect Bilirubin AST ALT Alkaline Phosphatase Lactate Dehydrogenase Total Protein Albumin Albumin/Globulin Ratio Lipase HCG, Qual Negative Urine Color Urine Turbidity Urine pH Ur Specific [place] Urine Protein Urine Glucose (UA) Urine Ketones Urine Blood Urine Nitrite Urine Bilirubin Urine Urobilinogen Ur Leukocyte Esterase Urine WBC (Auto) Urine RBC (Auto) U Epithel Cells (Auto) Urine Bacteria (Auto) Urine Mucus HIV 1&2 Antibody Rapid HIV P24 Antigen Schistocytes Smear Blood Type Antibody Screen Direct Antiglob Test PATRIC, Poly Interpret Crossmatch 11/03/18 11/03/18 11/03/18 20:17 20:17 20:17 WBC RBC Hgb Hct MCV MCH MCHC RDW Plt Count Lymph % (Auto) [place]ary % (Auto) Eos % (Auto) Baso % (Auto) Lymph # Geary # Eos # Baso # Add Manual Diff Total Counted Seg Neutrophils % Seg Neuts % (Manual) Band Neutrophils % Lymphocytes % (Manual) Reactive Lymphs % (Man) Monocytes % (Manual) Eosinophils % (Manual) Basophils % (Manual) Metamyelocytes % Myelocytes % Promyelocytes % Blast Cells % Nucleated RBC % Seg Neutrophils # Seg Neutrophils # Man Band Neutrophils # Lymphocytes # (Manual) Abs React Lymphs (Man) Monocytes # (Manual) Eosinophils # (Manual) Basophils # (Manual) Metamyelocytes # Myelocytes # Promyelocytes # Blast Cells # Pathologist Review Hypersegmented Neuts Hyposegmented Neuts Hypogranular Neuts Smudge Cells Toxic Granulation Toxic Vacuolation Dohle Bodies Pelger-Huet Anomaly Sue Rods Platelet Estimate Clumped Platelets Plt Clumps, EDTA Large Platelets Giant Platelets Platelet Satelliting Plt Morphology Comment RBC Morphology Dimorphic RBCs Polychromasia Hypochromasia Poikilocytosis Anisocytosis Microcytosis Macrocytosis Spherocytes Pappenheimer Bodies Sickle Cells Target Cells Tear Drop Cells Ovalocytes Helmet Cells [place] Bodies [place] Rings Tani Cells Bite Cells Crenated Cell Elliptocytes Acanthocytes (Spur) Rouleaux Hemoglobin C Crystals Schistocytes Malaria parasites Percent Retic Neal Bodies Hem Pathologist Commnt PT INR APTT VBG pH 7.513 H Sodium Potassium Chloride Carbon Dioxide Anion Gap BUN Creatinine Estimated GFR BUN/Creatinine Ratio Glucose Lactic Acid Calcium Magnesium 2.00 Iron TIBC Total Bilirubin Direct Bilirubin Indirect Bilirubin AST ALT Alkaline Phosphatase Lactate Dehydrogenase Total Protein Albumin Albumin/Globulin Ratio Lipase 15 HCG, Qual Urine Color Urine Turbidity Urine pH Ur Specific [place] Urine Protein Urine Glucose (UA) Urine Ketones Urine Blood Urine Nitrite Urine Bilirubin Urine Urobilinogen Ur Leukocyte Esterase Urine WBC (Auto) Urine RBC (Auto) U Epithel Cells (Auto) Urine Bacteria (Auto) Urine Mucus HIV 1&2 Antibody Rapid HIV P24 Antigen Schistocytes Smear Blood Type Antibody Screen Direct Antiglob Test PATRIC, Poly Interpret Crossmatch 11/03/18 11/03/18 11/03/18 20:21 21:01 21:56 WBC 10.4 RBC 2.48 L Hgb Not Reportable Hct 20.4 L MCV 84 MCH Not Reportable MCHC Not Reportable RDW 20.4 H Plt Count 320 Lymph % (Auto) 24.8 Geary % (Auto) 10.0 H Eos % (Auto) 1.0 Baso % (Auto) 0.5 Lymph # 2.6 Geary # 1.0 H Eos # 0.1 Baso # 0.1 Add Manual Diff Total Counted Seg Neutrophils % 63.7 Seg Neuts % (Manual) Band Neutrophils % Lymphocytes % (Manual) Reactive Lymphs % (Man) Monocytes % (Manual) Eosinophils % (Manual) Basophils % (Manual) Metamyelocytes % Myelocytes % Promyelocytes % Blast Cells % Nucleated RBC % Seg Neutrophils # 6.6 Seg Neutrophils # Man Band Neutrophils # Lymphocytes # (Manual) Abs React Lymphs (Man) Monocytes # (Manual) Eosinophils # (Manual) Basophils # (Manual) Metamyelocytes # Myelocytes # Promyelocytes # Blast Cells # Pathologist Review Hypersegmented Neuts Hyposegmented Neuts Hypogranular Neuts Smudge Cells Toxic Granulation Toxic Vacuolation Dohle Bodies Pelger-Huet Anomaly Sue Rods Platelet Estimate Clumped Platelets Plt Clumps, EDTA Large Platelets Giant Platelets Platelet Satelliting Plt Morphology Comment RBC Morphology Dimorphic RBCs Polychromasia Hypochromasia Poikilocytosis Anisocytosis Microcytosis Macrocytosis Spherocytes Pappenheimer Bodies Sickle Cells Target Cells Tear Drop Cells Ovalocytes Helmet Cells [place] Bodies [place] Rings [place] Cells Bite Cells Crenated Cell Elliptocytes Acanthocytes (Spur) Rouleaux Hemoglobin C Crystals Schistocytes Malaria parasites Percent Retic Enal Bodies Hem Pathologist Commnt PT INR APTT VBG pH Sodium 133 L Potassium 3.9 Chloride 98.2 Carbon Dioxide 24 Anion Gap 15 BUN 8 Creatinine 0.3 L Estimated GFR > 60 BUN/Creatinine Ratio 27 Glucose 97 Lactic Acid Calcium 8.7 Magnesium Iron TIBC Total Bilirubin 8.30 H Direct Bilirubin 8.0 H Indirect Bilirubin 0.3 AST 42 H ALT 19 Alkaline Phosphatase 41 Lactate Dehydrogenase 672 H Total Protein 7.6 Albumin 3.9 Albumin/Globulin Ratio 1.1 Lipase HCG, Qual Urine Color Bhargavi Urine Turbidity Slightly-cloudy Urine pH 6.0 Ur Specific [place] 1.025 Urine Protein 100 mg/dl Urine Glucose (UA) Neg Urine Ketones Neg Urine Blood Neg Urine Nitrite Neg Urine Bilirubin Neg Urine Urobilinogen 4.0 Ur Leukocyte Esterase Lg Urine WBC (Auto) 19.0 H Urine RBC (Auto) 3.0 U Epithel Cells (Auto) 18.0 H Urine Bacteria (Auto) 1+ Urine Mucus Few HIV 1&2 Antibody Rapid HIV P24 Antigen Schistocytes Smear Blood Type Antibody Screen Direct Antiglob Test PATRIC, Poly Interpret Crossmatch 11/03/18 11/03/18 11/04/18 21:56 23:12 01:01 WBC RBC Hgb Hct MCV MCH MCHC RDW Plt Count Lymph % (Auto) [place]ary % (Auto) Eos % (Auto) Baso % (Auto) Lymph # Geary # Eos # Baso # Add Manual Diff Total Counted Seg Neutrophils % Seg Neuts % (Manual) Band Neutrophils % Lymphocytes % (Manual) Reactive Lymphs % (Man) Monocytes % (Manual) Eosinophils % (Manual) Basophils % (Manual) Metamyelocytes % Myelocytes % Promyelocytes % Blast Cells % Nucleated RBC % Seg Neutrophils # Seg Neutrophils # Man Band Neutrophils # Lymphocytes # (Manual) Abs React Lymphs (Man) Monocytes # (Manual) Eosinophils # (Manual) Basophils # (Manual) Metamyelocytes # Myelocytes # Promyelocytes # Blast Cells # Pathologist Review Hypersegmented Neuts Hyposegmented Neuts Hypogranular Neuts Smudge Cells Toxic Granulation Toxic Vacuolation Dohle Bodies Pelger-Huet Anomaly Sue Rods Platelet Estimate Clumped Platelets Plt Clumps, EDTA Large Platelets Giant Platelets Platelet Satelliting Plt Morphology Comment RBC Morphology Dimorphic RBCs Polychromasia Hypochromasia Poikilocytosis Anisocytosis Microcytosis Macrocytosis Spherocytes Pappenheimer Bodies Sickle Cells Target Cells Tear Drop Cells Ovalocytes Helmet Cells [place] Bodies [place] Rings Tani Cells Bite Cells Crenated Cell Elliptocytes Acanthocytes (Spur) Rouleaux Hemoglobin C Crystals Schistocytes Malaria parasites Percent Retic 12.96 H Neal Bodies Hem Pathologist Commnt PT INR APTT VBG pH Sodium Potassium Chloride Carbon Dioxide Anion Gap BUN Creatinine Estimated GFR BUN/Creatinine Ratio Glucose Lactic Acid 0.70 Calcium Magnesium Iron TIBC Total Bilirubin Direct Bilirubin Indirect Bilirubin AST ALT Alkaline Phosphatase Lactate Dehydrogenase Total Protein Albumin Albumin/Globulin Ratio Lipase HCG, Qual Urine Color Urine Turbidity Urine pH Ur Specific [place] Urine Protein Urine Glucose (UA) Urine Ketones Urine Blood Urine Nitrite Urine Bilirubin Urine Urobilinogen Ur Leukocyte Esterase Urine WBC (Auto) Urine RBC (Auto) U Epithel Cells (Auto) Urine Bacteria (Auto) Urine Mucus HIV 1&2 Antibody Rapid HIV P24 Antigen Schistocytes Smear None seen Blood Type O POSITIVE Antibody Screen Negative Direct Antiglob Test PATRIC, Poly Interpret Crossmatch See Detail 11/04/18 11/04/18 11/04/18 01:01 02:29 03:29 WBC 8.9 RBC 2.09 L Hgb Appliance Sales Associate Hct 18.0 L* MCV 86 MCH Appliance Sales Associate MCHC Appliance Sales Associate RDW 20.5 H Plt Count 259 Lymph % (Auto) [place]ary % (Auto) Eos % (Auto) Baso % (Auto) Lymph # Geary # Eos # Baso # Add Manual Diff Complete Total Counted 100 Seg Neutrophils % Seg Neuts % (Manual) 70.0 Band Neutrophils % 2.0 Lymphocytes % (Manual) 23.0 Reactive Lymphs % (Man) 0 Monocytes % (Manual) 3.0 Eosinophils % (Manual) 2.0 Basophils % (Manual) 0 Metamyelocytes % 0 Myelocytes % 0 Promyelocytes % 0 Blast Cells % 0 Nucleated RBC % Not Reportable Seg Neutrophils # Seg Neutrophils # Man 6.2 Band Neutrophils # 0.2 Lymphocytes # (Manual) 2.0 Abs React Lymphs (Man) 0.0 Monocytes # (Manual) 0.3 Eosinophils # (Manual) 0.2 Basophils # (Manual) 0.0 Metamyelocytes # 0.0 Myelocytes # 0.0 Promyelocytes # 0.0 Blast Cells # 0.0 Pathologist Review Hypersegmented Neuts Not Reportable Hyposegmented Neuts Not Reportable Hypogranular Neuts Not Reportable Smudge Cells Not Reportable Toxic Granulation Not Reportable Toxic Vacuolation Not Reportable Dohle Bodies Not Reportable Pelger-Huet Anomaly Not Reportable Sue Rods Not Reportable Platelet Estimate Consistent w auto Clumped Platelets Not Reportable Plt Clumps, EDTA Not Reportable Large Platelets Not Reportable Giant Platelets Not Reportable Platelet Satelliting Not Reportable Plt Morphology Comment Not Reportable RBC Morphology Not Reportable Dimorphic RBCs Yes Polychromasia 1+ Hypochromasia Not Reportable Poikilocytosis Not Reportable Anisocytosis 1+ Microcytosis Few Macrocytosis Not Reportable Spherocytes 1+ Pappenheimer Bodies Not Reportable Sickle Cells Not Reportable Target Cells Not Reportable Tear Drop Cells Rare Ovalocytes Few Helmet Cells Not Reportable [place] Bodies Not Reportable [place] Rings Not Reportable [place] Cells Not Reportable Bite Cells Not Reportable Crenated Cell Not Reportable Elliptocytes Not Reportable Acanthocytes (Spur) Not Reportable Rouleaux Not Reportable Hemoglobin C Crystals Not Reportable Schistocytes Not Reportable Malaria parasites Not Reportable Percent Retic Neal Bodies Not Reportable Hem Pathologist Commnt Sent to pathology PT INR APTT VBG pH Sodium 134 L Potassium 3.4 L Chloride 103.4 Carbon Dioxide 21 L Anion Gap 13 BUN 7 Creatinine 0.4 L Estimated GFR > 60 BUN/Creatinine Ratio 18 Glucose 107 H Lactic Acid Calcium 7.8 L Magnesium Iron TIBC Total Bilirubin 5.10 H Direct Bilirubin Indirect Bilirubin AST 40 ALT 20 Alkaline Phosphatase 52 Lactate Dehydrogenase Total Protein 6.5 Albumin 3.6 L Albumin/Globulin Ratio 1.2 Lipase HCG, Qual Urine Color Urine Turbidity Urine pH Ur Specific [place] Urine Protein Urine Glucose (UA) Urine Ketones Urine Blood Urine Nitrite Urine Bilirubin Urine Urobilinogen Ur Leukocyte Esterase Urine WBC (Auto) Urine RBC (Auto) U Epithel Cells (Auto) Urine Bacteria (Auto) Urine Mucus HIV 1&2 Antibody Rapid Non react HIV P24 Antigen Non react Schistocytes Smear Blood Type Antibody Screen Direct Antiglob Test Negative PATRIC, Poly Interpret Negative Crossmatch 11/04/18 03:29 WBC RBC Hgb Hct MCV MCH MCHC RDW Plt Count Lymph % (Auto) [place]ary % (Auto) Eos % (Auto) Baso % (Auto) Lymph # Geary # Eos # Baso # Add Manual Diff Total Counted Seg Neutrophils % Seg Neuts % (Manual) Band Neutrophils % Lymphocytes % (Manual) Reactive Lymphs % (Man) Monocytes % (Manual) Eosinophils % (Manual) Basophils % (Manual) Metamyelocytes % Myelocytes % Promyelocytes % Blast Cells % Nucleated RBC % Seg Neutrophils # Seg Neutrophils # Man Band Neutrophils # Lymphocytes # (Manual) Abs React Lymphs (Man) Monocytes # (Manual) Eosinophils # (Manual) Basophils # (Manual) Metamyelocytes # Myelocytes # Promyelocytes # Blast Cells # Pathologist Review Hypersegmented Neuts Hyposegmented Neuts Hypogranular Neuts Smudge Cells Toxic Granulation Toxic Vacuolation Dohle Bodies Pelger-Huet Anomaly Sue Rods Platelet Estimate Clumped Platelets Plt Clumps, EDTA Large Platelets Giant Platelets Platelet Satelliting Plt Morphology Comment RBC Morphology Dimorphic RBCs Polychromasia Hypochromasia Poikilocytosis Anisocytosis Microcytosis Macrocytosis Spherocytes Pappenheimer Bodies Sickle Cells Target Cells Tear Drop Cells Ovalocytes Helmet Cells [place] Bodies [place] Rings Tani Cells Bite Cells Crenated Cell Elliptocytes Acanthocytes (Spur) Rouleaux Hemoglobin C Crystals Schistocytes Malaria parasites Percent Retic Neal Bodies Hem Pathologist Commnt PT INR APTT VBG pH Sodium Potassium Chloride Carbon Dioxide Anion Gap BUN Creatinine Estimated GFR BUN/Creatinine Ratio Glucose Lactic Acid Calcium Magnesium Iron 81 TIBC 160 L Total Bilirubin Direct Bilirubin Indirect Bilirubin AST ALT Alkaline Phosphatase Lactate Dehydrogenase Total Protein Albumin Albumin/Globulin Ratio Lipase HCG, Qual Urine Color Urine Turbidity Urine pH Ur Specific [place] Urine Protein Urine Glucose (UA) Urine Ketones Urine Blood Urine Nitrite Urine Bilirubin Urine Urobilinogen Ur Leukocyte Esterase Urine WBC (Auto) Urine RBC (Auto) U Epithel Cells (Auto) Urine Bacteria (Auto) Urine Mucus HIV 1&2 Antibody Rapid HIV P24 Antigen Schistocytes Smear Blood Type Antibody Screen Direct Antiglob Test PATRIC, Poly Interpret Crossmatch Assessment and Plan 1.hyperbilirubinemia (chronic) 2.anemia -T.isaac 5.10-trending down (direct isaac elevated?; AST 40, ALT 20, alk phos 52) -INR 1.15, plt 259 -MCV WNL, iron 81 -H/H- Hgb HORSE RACE TIMER, Hct 18.0-currently receiving transfusion PRBCs -continue to monitor H/H and transfuse as needed -abd CT showed hepatosplenomegaly and ovarian cysts -clinically, patient is w/o GI complaints or active signs of GI bleeding. -etiology unclear-likely 2/2 hemolytic process given severe anemia -will order serologies to r/o other causes to include TRAN, AMA, and hepatitis panel -recommend MRI for further evaluation of liver -continue supportive care -further recommendations to follow based on above results and hematologic workup <DORIAN SPAIN - Last Filed: 11/04/18 16:13> Medications and Allergies Active Meds: Active Medications Acetaminophen (Tylenol) 650 mg PO Q4H PRN PRN Reason: Pain MILD(1-3)/Fever >100.5/ALVAREZ Last Admin: 11/04/18 05:31 Dose: 650 mg Documented by: Sodium Chloride (Nacl 0.9% 1000 Ml) 1,000 mls @ 125 mls/hr IV DIRECT [facility] Last Admin: 11/04/18 02:38 Dose: 125 mls/hr Documented by: Multivit/Ca Carb/B Cmplx/FA/Prenat (Renal Caps) 1 cap PO QDAY [facility] Last Admin: 11/04/18 13:32 Dose: 1 cap Documented by: Ondansetron HCl (Zofran) 4 mg IV Q8H PRN PRN Reason: Nausea And Vomiting Prednisone (Deltasone) 60 mg PO QDAY [facility] Last Admin: 11/04/18 13:33 Dose: 60 mg Documented by: Sodium Chloride (Sodium Chloride Flush Syringe 10 Ml) 10 ml IV BID [facility] Last Admin: 11/04/18 10:25 Dose: 10 ml Documented by: Sodium Chloride (Sodium Chloride Flush Syringe 10 Ml) 10 ml IV PRN PRN PRN Reason: LINE FLUSH Exam - Constitutional Vital Signs: Temp Pulse Resp BP Pulse Ox 98.6 F 94 H 18 129/64 100 11/04/18 11:32 11/04/18 11:32 11/04/18 11:32 11/04/18 11:32 11/04/18 14:35 - Labs CBC & Chem 7: 11/04/18 12:42 11/04/18 03:29 Lab Results: Laboratory Results - last 24 hr 11/03/18 11/03/18 11/03/18 20:17 20:17 20:17 WBC RBC Hgb Hct MCV MCH MCHC RDW Plt Count Lymph % (Auto) [place] % (Auto) Eos % (Auto) Baso % (Auto) Lymph # Geary # Eos # Baso # Add Manual Diff Total Counted Seg Neutrophils % Seg Neuts % (Manual) Band Neutrophils % Lymphocytes % (Manual) Reactive Lymphs % (Man) Monocytes % (Manual) Eosinophils % (Manual) Basophils % (Manual) Metamyelocytes % Myelocytes % Promyelocytes % Blast Cells % Nucleated RBC % Seg Neutrophils # Seg Neutrophils # Man Band Neutrophils # Lymphocytes # (Manual) Abs React Lymphs (Man) Monocytes # (Manual) Eosinophils # (Manual) Basophils # (Manual) Metamyelocytes # Myelocytes # Promyelocytes # Blast Cells # Pathologist Review Hypersegmented Neuts Hyposegmented Neuts Hypogranular Neuts Smudge Cells Toxic Granulation Toxic Vacuolation Dohle Bodies Pelger-Huet Anomaly Sue Rods Platelet Estimate Clumped Platelets Plt Clumps, EDTA Large Platelets Giant Platelets Platelet Satelliting Plt Morphology Comment RBC Morphology Dimorphic RBCs Polychromasia Hypochromasia Poikilocytosis Anisocytosis Microcytosis Macrocytosis Spherocytes Pappenheimer Bodies Sickle Cells Target Cells Tear Drop Cells Ovalocytes Helmet Cells [place] Bodies [place] Rings [place] Cells Bite Cells Crenated Cell Elliptocytes Acanthocytes (Spur) Rouleaux Hemoglobin C Crystals Schistocytes Malaria parasites Percent Retic Neal Bodies Hem Pathologist Commnt PT 14.4 INR 1.15 H APTT 24.4 VBG pH Sodium Potassium Chloride Carbon Dioxide Anion Gap BUN Creatinine Estimated GFR BUN/Creatinine Ratio Glucose Lactic Acid 1.20 Calcium Magnesium Iron TIBC Ferritin Total Bilirubin Direct Bilirubin Indirect Bilirubin AST ALT Alkaline Phosphatase Lactate Dehydrogenase Total Protein Albumin Albumin/Globulin Ratio Lipase Vitamin B12 Folate HCG, Qual Negative Urine Color Urine Turbidity Urine pH Ur Specific [place] Urine Protein Urine Glucose (UA) Urine Ketones Urine Blood Urine Nitrite Urine Bilirubin Urine Urobilinogen Ur Leukocyte Esterase Urine WBC (Auto) Urine RBC (Auto) U Epithel Cells (Auto) Urine Bacteria (Auto) Urine Mucus HIV 1&2 Antibody Rapid HIV P24 Antigen Schistocytes Smear Blood Type Antibody Screen Direct Antiglob Test PATRIC, Poly Interpret Crossmatch 11/03/18 11/03/18 11/03/18 20:17 20:17 20:17 WBC RBC Hgb Hct MCV MCH MCHC RDW Plt Count Lymph % (Auto) [place] % (Auto) Eos % (Auto) Baso % (Auto) Lymph # Geary # Eos # Baso # Add Manual Diff Total Counted Seg Neutrophils % Seg Neuts % (Manual) Band Neutrophils % Lymphocytes % (Manual) Reactive Lymphs % (Man) Monocytes % (Manual) Eosinophils % (Manual) Basophils % (Manual) Metamyelocytes % Myelocytes % Promyelocytes % Blast Cells % Nucleated RBC % Seg Neutrophils # Seg Neutrophils # Man Band Neutrophils # Lymphocytes # (Manual) Abs React Lymphs (Man) Monocytes # (Manual) Eosinophils # (Manual) Basophils # (Manual) Metamyelocytes # Myelocytes # Promyelocytes # Blast Cells # Pathologist Review Hypersegmented Neuts Hyposegmented Neuts Hypogranular Neuts Smudge Cells Toxic Granulation Toxic Vacuolation Dohle Bodies Pelger-Huet Anomaly Sue Rods Platelet Estimate Clumped Platelets Plt Clumps, EDTA Large Platelets Giant Platelets Platelet Satelliting Plt Morphology Comment RBC Morphology Dimorphic RBCs Polychromasia Hypochromasia Poikilocytosis Anisocytosis Microcytosis Macrocytosis Spherocytes Pappenheimer Bodies Sickle Cells Target Cells Tear Drop Cells Ovalocytes Helmet Cells [place] Bodies [place] Rings [place] Cells Bite Cells Crenated Cell Elliptocytes Acanthocytes (Spur) Rouleaux Hemoglobin C Crystals Schistocytes Malaria parasites Percent Retic Neal Bodies Hem Pathologist Commnt PT INR APTT VBG pH 7.513 H Sodium Potassium Chloride Carbon Dioxide Anion Gap BUN Creatinine Estimated GFR BUN/Creatinine Ratio Glucose Lactic Acid Calcium Magnesium 2.00 Iron TIBC Ferritin Total Bilirubin Direct Bilirubin Indirect Bilirubin AST ALT Alkaline Phosphatase Lactate Dehydrogenase Total Protein Albumin Albumin/Globulin Ratio Lipase 15 Vitamin B12 Folate HCG, Qual Urine Color Urine Turbidity Urine pH Ur Specific [place] Urine Protein Urine Glucose (UA) Urine Ketones Urine Blood Urine Nitrite Urine Bilirubin Urine Urobilinogen Ur Leukocyte Esterase Urine WBC (Auto) Urine RBC (Auto) U Epithel Cells (Auto) Urine Bacteria (Auto) Urine Mucus HIV 1&2 Antibody Rapid HIV P24 Antigen Schistocytes Smear Blood Type Antibody Screen Direct Antiglob Test PATRIC, Poly Interpret Crossmatch 11/03/18 11/03/18 11/03/18 20:21 21:01 21:56 WBC 10.4 RBC 2.48 L Hgb Not Reportable Hct 20.4 L MCV 84 MCH Not Reportable MCHC Not Reportable RDW 20.4 H Plt Count 320 Lymph % (Auto) 24.8 [place] % (Auto) 10.0 H Eos % (Auto) 1.0 Baso % (Auto) 0.5 Lymph # 2.6 Geary # 1.0 H Eos # 0.1 Baso # 0.1 Add Manual Diff Total Counted Seg Neutrophils % 63.7 Seg Neuts % (Manual) Band Neutrophils % Lymphocytes % (Manual) Reactive Lymphs % (Man) Monocytes % (Manual) Eosinophils % (Manual) Basophils % (Manual) Metamyelocytes % Myelocytes % Promyelocytes % Blast Cells % Nucleated RBC % Seg Neutrophils # 6.6 Seg Neutrophils # Man Band Neutrophils # Lymphocytes # (Manual) Abs React Lymphs (Man) Monocytes # (Manual) Eosinophils # (Manual) Basophils # (Manual) Metamyelocytes # Myelocytes # Promyelocytes # Blast Cells # Pathologist Review Hypersegmented Neuts Hyposegmented Neuts Hypogranular Neuts Smudge Cells Toxic Granulation Toxic Vacuolation Dohle Bodies Pelger-Huet Anomaly Sue Rods Platelet Estimate Clumped Platelets Plt Clumps, EDTA Large Platelets Giant Platelets Platelet Satelliting Plt Morphology Comment RBC Morphology Dimorphic RBCs Polychromasia Hypochromasia Poikilocytosis Anisocytosis Microcytosis Macrocytosis Spherocytes Pappenheimer Bodies Sickle Cells Target Cells Tear Drop Cells Ovalocytes Helmet Cells [place] Bodies [place] Rings [place] Cells Bite Cells Crenated Cell Elliptocytes Acanthocytes (Spur) Rouleaux Hemoglobin C Crystals Schistocytes Malaria parasites Percent Retic Neal Bodies Hem Pathologist Commnt PT INR APTT VBG pH Sodium 133 L Potassium 3.9 Chloride 98.2 Carbon Dioxide 24 Anion Gap 15 BUN 8 Creatinine 0.3 L Estimated GFR > 60 BUN/Creatinine Ratio 27 Glucose 97 Lactic Acid Calcium 8.7 Magnesium Iron TIBC Ferritin Total Bilirubin 8.30 H Direct Bilirubin 8.0 H Indirect Bilirubin 0.3 AST 42 H ALT 19 Alkaline Phosphatase 41 Lactate Dehydrogenase 672 H Total Protein 7.6 Albumin 3.9 Albumin/Globulin Ratio 1.1 Lipase Vitamin B12 Folate HCG, Qual Urine Color Bhargavi Urine Turbidity Slightly-cloudy Urine pH 6.0 Ur Specific [place] 1.025 Urine Protein 100 mg/dl Urine Glucose (UA) Neg Urine Ketones Neg Urine Blood Neg Urine Nitrite Neg Urine Bilirubin Neg Urine Urobilinogen 4.0 Ur Leukocyte Esterase Lg Urine WBC (Auto) 19.0 H Urine RBC (Auto) 3.0 U Epithel Cells (Auto) 18.0 H Urine Bacteria (Auto) 1+ Urine Mucus Few HIV 1&2 Antibody Rapid HIV P24 Antigen Schistocytes Smear Blood Type Antibody Screen Direct Antiglob Test PATRIC, Poly Interpret Crossmatch 11/03/18 11/03/18 11/04/18 21:56 23:12 01:01 WBC RBC Hgb Hct MCV MCH MCHC RDW Plt Count Lymph % (Auto) [place] % (Auto) Eos % (Auto) Baso % (Auto) Lymph # Geary # Eos # Baso # Add Manual Diff Total Counted Seg Neutrophils % Seg Neuts % (Manual) Band Neutrophils % Lymphocytes % (Manual) Reactive Lymphs % (Man) Monocytes % (Manual) Eosinophils % (Manual) Basophils % (Manual) Metamyelocytes % Myelocytes % Promyelocytes % Blast Cells % Nucleated RBC % Seg Neutrophils # Seg Neutrophils # Man Band Neutrophils # Lymphocytes # (Manual) Abs React Lymphs (Man) Monocytes # (Manual) Eosinophils # (Manual) Basophils # (Manual) Metamyelocytes # Myelocytes # Promyelocytes # Blast Cells # Pathologist Review Hypersegmented Neuts Hyposegmented Neuts Hypogranular Neuts Smudge Cells Toxic Granulation Toxic Vacuolation Dohle Bodies Pelger-Huet Anomaly Sue Rods Platelet Estimate Clumped Platelets Plt Clumps, EDTA Large Platelets Giant Platelets Platelet Satelliting Plt Morphology Comment RBC Morphology Dimorphic RBCs Polychromasia Hypochromasia Poikilocytosis Anisocytosis Microcytosis Macrocytosis Spherocytes Pappenheimer Bodies Sickle Cells Target Cells Tear Drop Cells Ovalocytes Helmet Cells [place] Bodies [place] Rings Tani Cells Bite Cells Crenated Cell Elliptocytes Acanthocytes (Spur) Rouleaux Hemoglobin C Crystals Schistocytes Malaria parasites Percent Retic 12.96 H Neal Bodies Hem Pathologist Commnt PT INR APTT VBG pH Sodium Potassium Chloride Carbon Dioxide Anion Gap BUN Creatinine Estimated GFR BUN/Creatinine Ratio Glucose Lactic Acid 0.70 Calcium Magnesium Iron TIBC Ferritin Total Bilirubin Direct Bilirubin Indirect Bilirubin AST ALT Alkaline Phosphatase Lactate Dehydrogenase Total Protein Albumin Albumin/Globulin Ratio Lipase Vitamin B12 Folate HCG, Qual Urine Color Urine Turbidity Urine pH Ur Specific [place] Urine Protein Urine Glucose (UA) Urine Ketones Urine Blood Urine Nitrite Urine Bilirubin Urine Urobilinogen Ur Leukocyte Esterase Urine WBC (Auto) Urine RBC (Auto) U Epithel Cells (Auto) Urine Bacteria (Auto) Urine Mucus HIV 1&2 Antibody Rapid HIV P24 Antigen Schistocytes Smear None seen Blood Type O POSITIVE Antibody Screen Negative Direct Antiglob Test PATRIC, Poly Interpret Crossmatch See Detail 11/04/18 11/04/18 11/04/18 01:01 02:29 03:29 WBC 8.9 RBC 2.09 L Hgb Appliance Sales Associate Hct 18.0 L* MCV 86 MCH Appliance Sales Associate MCHC Appliance Sales Associate RDW 20.5 H Plt Count 259 Lymph % (Auto) [place] % (Auto) Eos % (Auto) Baso % (Auto) Lymph # Geary # Eos # Baso # Add Manual Diff Complete Total Counted 100 Seg Neutrophils % Seg Neuts % (Manual) 70.0 Band Neutrophils % 2.0 Lymphocytes % (Manual) 23.0 Reactive Lymphs % (Man) 0 Monocytes % (Manual) 3.0 Eosinophils % (Manual) 2.0 Basophils % (Manual) 0 Metamyelocytes % 0 Myelocytes % 0 Promyelocytes % 0 Blast Cells % 0 Nucleated RBC % Not Reportable Seg Neutrophils # Seg Neutrophils # Man 6.2 Band Neutrophils # 0.2 Lymphocytes # (Manual) 2.0 Abs React Lymphs (Man) 0.0 Monocytes # (Manual) 0.3 Eosinophils # (Manual) 0.2 Basophils # (Manual) 0.0 Metamyelocytes # 0.0 Myelocytes # 0.0 Promyelocytes # 0.0 Blast Cells # 0.0 Pathologist Review Hypersegmented Neuts Not Reportable Hyposegmented Neuts Not Reportable Hypogranular Neuts Not Reportable Smudge Cells Not Reportable Toxic Granulation Not Reportable Toxic Vacuolation Not Reportable Dohle Bodies Not Reportable Pelger-Huet Anomaly Not Reportable Sue Rods Not Reportable Platelet Estimate Consistent w auto Clumped Platelets Not Reportable Plt Clumps, EDTA Not Reportable Large Platelets Not Reportable Giant Platelets Not Reportable Platelet Satelliting Not Reportable Plt Morphology Comment Not Reportable RBC Morphology Not Reportable Dimorphic RBCs Yes Polychromasia 1+ Hypochromasia Not Reportable Poikilocytosis Not Reportable Anisocytosis 1+ Microcytosis Few Macrocytosis Not Reportable Spherocytes 1+ Pappenheimer Bodies Not Reportable Sickle Cells Not Reportable Target Cells Not Reportable Tear Drop Cells Rare Ovalocytes Few Helmet Cells Not Reportable [place] Bodies Not Reportable [place] Rings Not Reportable Tani Cells Not Reportable Bite Cells Not Reportable Crenated Cell Not Reportable Elliptocytes Not Reportable Acanthocytes (Spur) Not Reportable Rouleaux Not Reportable Hemoglobin C Crystals Not Reportable Schistocytes Not Reportable Malaria parasites Not Reportable Percent Retic Neal Bodies Not Reportable Hem Pathologist Commnt Sent to pathology PT INR APTT VBG pH Sodium 134 L Potassium 3.4 L Chloride 103.4 Carbon Dioxide 21 L Anion Gap 13 BUN 7 Creatinine 0.4 L Estimated GFR > 60 BUN/Creatinine Ratio 18 Glucose 107 H Lactic Acid Calcium 7.8 L Magnesium Iron TIBC Ferritin Total Bilirubin 5.10 H Direct Bilirubin Indirect Bilirubin AST 40 ALT 20 Alkaline Phosphatase 52 Lactate Dehydrogenase Total Protein 6.5 Albumin 3.6 L Albumin/Globulin Ratio 1.2 Lipase Vitamin B12 Folate HCG, Qual Urine Color Urine Turbidity Urine pH Ur Specific [place] Urine Protein Urine Glucose (UA) Urine Ketones Urine Blood Urine Nitrite Urine Bilirubin Urine Urobilinogen Ur Leukocyte Esterase Urine WBC (Auto) Urine RBC (Auto) U Epithel Cells (Auto) Urine Bacteria (Auto) Urine Mucus HIV 1&2 Antibody Rapid Non react HIV P24 Antigen Non react Schistocytes Smear Blood Type Antibody Screen Direct Antiglob Test Negative PATRIC, Poly Interpret Negative Crossmatch 11/04/18 11/04/18 11/04/18 03:29 12:41 12:42 WBC RBC Hgb Hct MCV MCH MCHC RDW Plt Count Lymph % (Auto) [place] % (Auto) Eos % (Auto) Baso % (Auto) Lymph # Geary # Eos # Baso # Add Manual Diff Total Counted Seg Neutrophils % Seg Neuts % (Manual) Band Neutrophils % Lymphocytes % (Manual) Reactive Lymphs % (Man) Monocytes % (Manual) Eosinophils % (Manual) Basophils % (Manual) Metamyelocytes % Myelocytes % Promyelocytes % Blast Cells % Nucleated RBC % Seg Neutrophils # Seg Neutrophils # Man Band Neutrophils # Lymphocytes # (Manual) Abs React Lymphs (Man) Monocytes # (Manual) Eosinophils # (Manual) Basophils # (Manual) Metamyelocytes # Myelocytes # Promyelocytes # Blast Cells # Pathologist Review Hypersegmented Neuts Hyposegmented Neuts Hypogranular Neuts Smudge Cells Toxic Granulation Toxic Vacuolation Dohle Bodies Pelger-Huet Anomaly Sue Rods Platelet Estimate Clumped Platelets Plt Clumps, EDTA Large Platelets Giant Platelets Platelet Satelliting Plt Morphology Comment RBC Morphology Dimorphic RBCs Polychromasia Hypochromasia Poikilocytosis Anisocytosis Microcytosis Macrocytosis Spherocytes Pappenheimer Bodies Sickle Cells Target Cells Tear Drop Cells Ovalocytes Helmet Cells [place] Bodies [place] Rings [place] Cells Bite Cells Crenated Cell Elliptocytes Acanthocytes (Spur) Rouleaux Hemoglobin C Crystals Schistocytes Malaria parasites Percent Retic Neal Bodies Hem Pathologist Commnt PT INR APTT VBG pH Sodium Potassium Chloride Carbon Dioxide Anion Gap BUN Creatinine Estimated GFR BUN/Creatinine Ratio Glucose Lactic Acid Calcium Magnesium Iron 81 TIBC 160 L Ferritin 457.2 H Total Bilirubin Direct Bilirubin Indirect Bilirubin AST ALT Alkaline Phosphatase Lactate Dehydrogenase Total Protein Albumin Albumin/Globulin Ratio Lipase Vitamin B12 Folate 5.10 L HCG, Qual Urine Color Urine Turbidity Urine pH Ur Specific [place] Urine Protein Urine Glucose (UA) Urine Ketones Urine Blood Urine Nitrite Urine Bilirubin Urine Urobilinogen Ur Leukocyte Esterase Urine WBC (Auto) Urine RBC (Auto) U Epithel Cells (Auto) Urine Bacteria (Auto) Urine Mucus HIV 1&2 Antibody Rapid HIV P24 Antigen Schistocytes Smear Blood Type Antibody Screen Direct Antiglob Test PATRIC, Poly Interpret Crossmatch 11/04/18 11/04/18 12:42 12:42 WBC 8.4 RBC 2.55 L Hgb 8.1 L Hct 22.2 L MCV 87 MCH 32 MCHC 37 H RDW 18.8 H Plt Count 279 Lymph % (Auto) [place] % (Auto) Eos % (Auto) Baso % (Auto) Lymph # [place] # Eos # Baso # Add Manual Diff Total Counted Seg Neutrophils % Seg Neuts % (Manual) Band Neutrophils % Lymphocytes % (Manual) Reactive Lymphs % (Man) Monocytes % (Manual) Eosinophils % (Manual) Basophils % (Manual) Metamyelocytes % Myelocytes % Promyelocytes % Blast Cells % Nucleated RBC % Seg Neutrophils # Seg Neutrophils # Man Band Neutrophils # Lymphocytes # (Manual) Abs React Lymphs (Man) Monocytes # (Manual) Eosinophils # (Manual) Basophils # (Manual) Metamyelocytes # Myelocytes # Promyelocytes # Blast Cells # Pathologist Review Hypersegmented Neuts Hyposegmented Neuts Hypogranular Neuts Smudge Cells Toxic Granulation Toxic Vacuolation Dohle Bodies Pelger-Huet Anomaly Sue Rods Platelet Estimate Clumped Platelets Plt Clumps, EDTA Large Platelets Giant Platelets Platelet Satelliting Plt Morphology Comment RBC Morphology Dimorphic RBCs Polychromasia Hypochromasia Poikilocytosis Anisocytosis Microcytosis Macrocytosis Spherocytes Pappenheimer Bodies Sickle Cells Target Cells Tear Drop Cells Ovalocytes Helmet Cells [place] Bodies [place] Rings [place] Cells Bite Cells Crenated Cell Elliptocytes Acanthocytes (Spur) Rouleaux Hemoglobin C Crystals Schistocytes Malaria parasites Percent Retic Neal Bodies Hem Pathologist Commnt PT INR APTT VBG pH Sodium Potassium Chloride Carbon Dioxide Anion Gap BUN Creatinine Estimated GFR BUN/Creatinine Ratio Glucose Lactic Acid Calcium Magnesium Iron TIBC Ferritin Total Bilirubin Direct Bilirubin Indirect Bilirubin AST ALT Alkaline Phosphatase Lactate Dehydrogenase Total Protein Albumin Albumin/Globulin Ratio Lipase Vitamin B12 347.9 Folate HCG, Qual Urine Color Urine Turbidity Urine pH Ur Specific [place] Urine Protein Urine Glucose (UA) Urine Ketones Urine Blood Urine Nitrite Urine Bilirubin Urine Urobilinogen Ur Leukocyte Esterase Urine WBC (Auto) Urine RBC (Auto) U Epithel Cells (Auto) Urine Bacteria (Auto) Urine Mucus HIV 1&2 Antibody Rapid HIV P24 Antigen Schistocytes Smear Blood Type Antibody Screen Direct Antiglob Test PATRIC, Poly Interpret Crossmatch Assessment and Plan Patient seen and examined. Agree with note above. History of jaundice years ago with neg hepatology work-up. Presents with worsening jaundice, severe anemia and fever. rest of liver enzymes normal. r/o obstructive process with MRI. will repeat serologies as above to evaluate for autoimmune vs other underlying liver disease. suspect underlying hematologic process and heme/onc following.
--- NOTE | 2018-11-04 12:57 | Progress Note ---
Assessment and Plan Assessment and plan: Patient is a 28 yo woman without chronic medical problems who presents to [facility] ED with fever, generalized weakness, fatigue and body aches x 4 days. * CT ABDOMEN AND PELVIS WITH IV CONTRAST INDICATION: fever, elevated direct bili, anemia. COMPARISON: None available. TECHNIQUE: All CT scans at this facility use dose modulation, automated exposure control, iterative reconstruction or weight based dosing, when appropriate, to reduce radiation dose to as low as reasonably achievable. FINDINGS: Lung Bases: Clear. Skeletal System: No acute abnormality. ABDOMEN: Liver: The liver is enlarged but otherwise unremarkable. Gallbladder: Removed. Bile Ducts: Normal. Pancreas: Normal. Spleen: Enlarged, otherwise unremarkable. Adrenals: Normal. Right Kidney: Normal. Left Kidney: Normal. Stomach and Bowel: Normal. Lymph Nodes: No significant adenopathy. Aorta: No significant abnormality. Additional Findings: None. PELVIS: Colon: Normal aside from mild constipation.. Urinary Bladder and Distal Ureters: Normal. Appendix: Normal. Lymph Nodes: No significant adenopathy. Additional Findings: Bilateral ovarian cysts are likely physiologic. There is trace free fluid in the cul-de-sac. IMPRESSION: 1. Hepatosplenomegaly. 2. Bilateral ovarian cysts and trace free fluid in the cul-de-sac are likely physiologic. Jaundice Hemolytic Anemia Fever; ID consulted Hepatosplenomegaly Plan Admit to medicine Start IV fluid, Katie' test, schistocytes pending Type and screen blood, check haptoglobin level, follow cultures Hematology and GI was consulted to see the patient Consult ID, case discussed with Dr Pham recommended to obtain Ray-Forrester, CMV and HIV testing DVT prophalaxis Transfuse blood d/w Dr. Julio, considering steroids for negative Katie but concerned about infection, I spoke with ID physician, Dr. Harris and he will call Dr. Julio to discuss History Interval history: Patient was seen and examined. Follow-up on current diagnosis of N/V. No overnight events reported to me. Patient denies any chest pain, shortness breath or severe headaches. Imaging, nursing note, chart, labs and old chart reviewed. Discussed with patient. Hospitalist Physical - Physical exam Narrative exam: Gen: WDWN, NAD, Awake, Alert, Orientated HEENT: NCAT, EOMI, PERRL, OP Clear Neck: supple, no adenopathy, no thyromegaly, no JVD CVS/Heart: RRR, normal S1S2, pulses present bilaterally Chest/Lungs: CTA B, Symmetrical chest expansion, good air entry bilaterally GI/Abdomen: soft, NTND, good bowel sounds, no guarding or rebound /Bladder: no suprapubic tenderness, no CVA or paraspinal tenderness Extermity/Skin: no c/c/e, jaundice/icteric sclera MSK: FROM x 4 Neuro: CN 2-12 grossly intact, no new focal deficits Psych: calm - Constitutional Vitals: Temp Pulse Resp BP Pulse Ox 98.6 F 94 H 18 129/64 100 11/04/18 11:32 11/04/18 11:32 11/04/18 11:32 11/04/18 11:32 11/04/18 11:32 Results - Labs CBC & Chem 7: 11/04/18 02:29 11/04/18 03:29 Labs: Laboratory Last Values WBC 8.9 K/mm3 (4.5-11.0) 11/04/18 02:29 RBC 2.09 M/mm3 (3.65-5.03) L 11/04/18 02:29 Hgb Refrigeration [place] 11/04/18 02:29 Hct 18.0 % (30.3-42.9) L* 11/04/18 02:29 MCV 86 fl (79-97) 11/04/18 02:29 MCH Refrigeration [place] 11/04/18 02:29 MCHC Refrigeration [place] 11/04/18 02:29 RDW 20.5 % (13.2-15.2) H 11/04/18 02:29 Plt Count 259 K/mm3 (140-440) 11/04/18 02:29 Lymph % (Auto) 24.8 % (13.4-35.0) 11/03/18 21:56 [place] % (Auto) 10.0 % (0.0-7.3) H 11/03/18 21:56 Eos % (Auto) 1.0 % (0.0-4.3) 11/03/18 21:56 Baso % (Auto) 0.5 % (0.0-1.8) 11/03/18 21:56 Lymph # 2.6 K/mm3 (1.2-5.4) 11/03/18 21:56 [place] # 1.0 K/mm3 (0.0-0.8) H 11/03/18 21:56 Eos # 0.1 K/mm3 (0.0-0.4) 11/03/18 21:56 Baso # 0.1 K/mm3 (0.0-0.1) 11/03/18 21:56 Add Manual Diff Complete 11/04/18 02:29 Total Counted 100 11/04/18 02:29 Seg Neutrophils % 63.7 % (40.0-70.0) 11/03/18 21:56 Seg Neuts % (Manual) 70.0 % (40.0-70.0) 11/04/18 02:29 2.0 % 11/04/18 02:29 23.0 % (13.4-35.0) 11/04/18 02:29 Reactive Lymphs % (Man) 0 % 11/04/18 02:29 3.0 % (0.0-7.3) 11/04/18 02:29 2.0 % (0.0-4.3) 11/04/18 02:29 0 % (0.0-1.8) 11/04/18 02:29 0 % 11/04/18 02:29 0 % 11/04/18 02:29 0 % 11/04/18 02:29 0 % 11/04/18 02:29 Nucleated RBC % Not Reportable 11/04/18 02:29 Seg Neutrophils # 6.6 K/mm3 (1.8-7.7) 11/03/18 21:56 Seg Neutrophils # Man 6.2 K/mm3 (1.8-7.7) 11/04/18 02:29 Band Neutrophils # 0.2 K/mm3 11/04/18 02:29 2.0 K/mm3 (1.2-5.4) 11/04/18 02:29 Abs React Lymphs (Man) 0.0 K/mm3 11/04/18 02:29 0.3 K/mm3 (0.0-0.8) 11/04/18 02:29 0.2 K/mm3 (0.0-0.4) 11/04/18 02:29 0.0 K/mm3 (0.0-0.1) 11/04/18 02:29 0.0 K/mm3 11/04/18 02:29 0.0 K/mm3 11/04/18 02:29 0.0 K/mm3 11/04/18 02:29 Blast Cells # 0.0 K/mm3 11/04/18 02:29 Pathologist Review 11/04/18 02:29 Hypersegmented Neuts Not Reportable 11/04/18 02:29 Hyposegmented Neuts Not Reportable 11/04/18 02:29 Hypogranular Neuts Not Reportable 11/04/18 02:29 Not Reportable 11/04/18 02:29 Not Reportable 11/04/18 02:29 Not Reportable 11/04/18 02:29 Not Reportable 11/04/18 02:29 Not Reportable 11/04/18 02:29 Not Reportable 11/04/18 02:29 Consistent w auto 11/04/18 02:29 Not Reportable 11/04/18 02:29 Plt Clumps, EDTA Not Reportable 11/04/18 02:29 Not Reportable 11/04/18 02:29 Not Reportable 11/04/18 02:29 Not Reportable 11/04/18 02:29 Plt Morphology Comment Not Reportable 11/04/18 02:29 RBC Morphology Not Reportable 11/04/18 02:29 Dimorphic RBCs Yes 11/04/18 02:29 1+ 11/04/18 02:29 Not Reportable 11/04/18 02:29 Not Reportable 11/04/18 02:29 1+ 11/04/18 02:29 Few 11/04/18 02:29 Not Reportable 11/04/18 02:29 1+ 11/04/18 02:29 Not Reportable 11/04/18 02:29 Not Reportable 11/04/18 02:29 Not Reportable 11/04/18 02:29 Rare 11/04/18 02:29 Few 11/04/18 02:29 Not Reportable 11/04/18 02:29 Not Reportable 11/04/18 02:29 Not Reportable 11/04/18 02:29 Not Reportable 11/04/18 02:29 Not Reportable 11/04/18 02:29 Not Reportable 11/04/18 02:29 Not Reportable 11/04/18 02:29 Acanthocytes (Spur) Not Reportable 11/04/18 02:29 Rouleaux Not Reportable 11/04/18 02:29 Not Reportable 11/04/18 02:29 Not Reportable 11/04/18 02:29 Not Reportable 11/04/18 02:29 Percent Retic 12.96 % (0.78-2.58) H 11/03/18 21:56 Not Reportable 11/04/18 02:29 Hem Pathologist Commnt Sent to pathology 11/04/18 02:29 PT 14.4 Sec. (12.2-14.9) 11/03/18 20:17 INR 1.15 (0.87-1.13) H 11/03/18 20:17 APTT 24.4 Sec. (24.2-36.6) 11/03/18 20:17 VBG pH 7.513 (7.320-7.420) H 11/03/18 20:17 Sodium 134 mmol/L (137-145) L 11/04/18 03:29 Potassium 3.4 mmol/L (3.6-5.0) L 11/04/18 03:29 Chloride 103.4 mmol/L (98-107) 11/04/18 03:29 Carbon Dioxide 21 mmol/L (22-30) L 11/04/18 03:29 13 mmol/L 11/04/18 03:29 BUN 7 mg/dL (7-17) 11/04/18 03:29 0.4 mg/dL (0.7-1.2) L 11/04/18 03:29 Estimated GFR > 60 ml/min 11/04/18 03:29 18 % 11/04/18 03:29 Glucose 107 mg/dL (65-100) H 11/04/18 03:29 Lactic Acid 0.70 mmol/L (0.7-2.0) 11/03/18 23:12 Calcium 7.8 mg/dL (8.4-10.2) L 11/04/18 03:29 Magnesium 2.00 mg/dL (1.7-2.3) 11/03/18 20:17 Iron 81 ug/dL (37-170) 11/04/18 03:29 TIBC 160 mcg/dL (250-450) L 11/04/18 03:29 5.10 mg/dL (0.1-1.2) H 11/04/18 03:29 8.0 mg/dL (0-0.2) H 11/03/18 21:01 0.3 mg/dL 11/03/18 21:01 AST 40 units/L (5-40) 11/04/18 03:29 ALT 20 units/L (7-56) 11/04/18 03:29 52 units/L (35-129) 11/04/18 03:29 672 units/L (91-180) H 11/03/18 21:01 6.5 g/dL (6.3-8.2) 11/04/18 03:29 3.6 g/dL (3.9-5) L 11/04/18 03:29 1.2 % 11/04/18 03:29 15 units/L (13-60) 11/03/18 20:17 HCG, Qual Negative (Negative) 11/03/18 20:17 Bhargavi (Yellow) 11/03/18 20:21 Slightly-cloudy (Clear) 11/03/18 20:21 6.0 (5.0-7.0) 11/03/18 20:21 Ur Specific [place] 1.025 (1.003-1.030) 11/03/18 20:21 100 mg/dl mg/dL (Negative) 11/03/18 20:21 Neg mg/dL (Negative) 11/03/18 20:21 Neg mg/dL (Negative) 11/03/18 20:21 Neg (Negative) 11/03/18 20:21 Neg (Negative) 11/03/18 20:21 Neg (Negative) 11/03/18 20:21 4.0 mg/dL (<2.0) 11/03/18 20:21 Ur Leukocyte Esterase Lg (Negative) 11/03/18 20:21 19.0 /HPF (0.0-6.0) H 11/03/18 20:21 3.0 /HPF (0.0-6.0) 11/03/18 20:21 U Epithel Cells (Auto) 18.0 /HPF (0-13.0) H 11/03/18 20:21 1+ /HPF (Negative) 11/03/18 20:21 Few /HPF 11/03/18 20:21 HIV 1&2 Antibody Rapid Non react (Non React) 11/04/18 02:29 Non react (Non React) 11/04/18 02:29 None seen 11/03/18 21:56 Blood Type O POSITIVE 11/04/18 01:01 Antibody Screen Negative 11/04/18 01:01 Direct Antiglob Test Negative 11/04/18 01:01 PATRIC, Poly Interpret Negative 11/04/18 01:01 Crossmatch See Detail 11/04/18 01:01 Active Medications - Current Medications Current Medications: Generic Name Dose Route Start Last Admin Trade Name Freq PRN Reason Stop Dose Admin Acetaminophen 650 mg 11/04/18 02:29 11/04/18 05:31 Tylenol PO 650 mg Q4H PRN Administration Pain MILD(1-3)/Fever >100.5/ALVAREZ Sodium Chloride 1,000 mls @ 125 mls/hr 11/04/18 03:00 11/04/18 02:38 Nacl 0.9% 1000 Ml IV 125 mls/hr DIRECT LISANDRA Administration Ondansetron HCl 4 mg 11/04/18 02:29 Zofran IV Q8H PRN Nausea And Vomiting Sodium Chloride 10 ml 11/04/18 10:00 11/04/18 10:25 Sodium Chloride Flush Syringe 10 Ml IV 10 ml BID LISANDRA Administration Sodium Chloride 10 ml 11/04/18 02:29 Sodium Chloride Flush Syringe 10 Ml IV PRN PRN LINE FLUSH
[2018-11-04] MEDS: Renal Caps PO SCH (13:32)
[2018-11-04] MEDS: DELTASONE PO SCH (13:33)
--- NOTE | 2018-11-04 13:59 | Consultation ---
History of Present Illness - Reason for Consult Consult date: 11/04/18 Fever, Jaundice Requesting physician: ALE ZUNIGA - History of Present Illness The patient is a 28-year-old female with previous cholecystectomy presented to the emergency room yesterday with complaints of fever, body aches as well as fatigue and chills going on for about 3-4 days prior to admission. She had a temperature of 100F on admission, no fevers since then. Labs revealed severe anemia with a hematocrit of 20.4, elevated bilirubin of 8.3, elevated LDH of 672. Infectious diseases was consulted to rule out any infectious process. She got a dose of ceftriaxone on admission. She had a fever of 103F when she had come to the emergency room the day prior. Currently just feels tired, denies any other complaints. Urine has been dark yellow in color. Drinks alcohol occasionally. Denies any IV drug use. Denies any international travel. Last trip out of [place] was to [place] in July 2018. Denies any history of homelessness or incarceration. Does report a family history of sickle cell disease. Review of Systems: General: no fevers,chills or rigors HEENT: no new visual disturbance. Icterus Respiratory: No cough, sputum, hemoptysis or shortness of breath Cardiovascular: No chest pain, syncope Gastrointestinal: No nausea, vomiting or diarrhea Genitourinary: No dysuria or hematuria Musculoskeletal: No new or worsening neck pain or back pain Neurologic: No headaches, seizures Hematologic: No easy bruising or bleeding Endocrine: No night sweats or acute weight loss Skin: negative for rash, jaundice Psychiatric: No suicidal or homicidal ideation Past History Past Medical History: anemia, other (elevated LFTs) Past Surgical History: cholecystectomy Social history: other (alcohol). denies: smoking Family history: hypertension Medications and Allergies Allergies Allergy/AdvReac Type Severity Reaction Status Date / Time No Known Allergies Allergy Verified 11/03/18 00:42 Home Medications Medication Instructions Recorded Confirmed Last Taken Type No Known Home Medications [No 11/03/18 11/03/18 Unknown History Reported Home Medications] Active Meds: Active Medications Acetaminophen (Tylenol) 650 mg PO Q4H PRN PRN Reason: Pain MILD(1-3)/Fever >100.5/ALVAREZ Last Admin: 11/04/18 05:31 Dose: 650 mg Documented by: Sodium Chloride (Nacl 0.9% 1000 Ml) 1,000 mls @ 125 mls/hr IV DIRECT [facility] Last Admin: 11/04/18 02:38 Dose: 125 mls/hr Documented by: Multivit/Ca Carb/B Cmplx/FA/Prenat (Renal Caps) 1 cap PO QDAY [facility] Last Admin: 11/04/18 13:32 Dose: 1 cap Documented by: Ondansetron HCl (Zofran) 4 mg IV Q8H PRN PRN Reason: Nausea And Vomiting Prednisone (Deltasone) 60 mg PO QDAY [facility] Last Admin: 11/04/18 13:33 Dose: 60 mg Documented by: Sodium Chloride (Sodium Chloride Flush Syringe 10 Ml) 10 ml IV BID [facility] Last Admin: 11/04/18 10:25 Dose: 10 ml Documented by: Sodium Chloride (Sodium Chloride Flush Syringe 10 Ml) 10 ml IV PRN PRN PRN Reason: LINE FLUSH Physical Examination - Physical Exam Narrative exam: Physical Exam: Constitutional: Alert, cooperative. No acute distress Head, Ears, Nose: Normocephalic, atraumatic. External ears, nose normal Eyes: Conjunctivae/corneas clear. + icterus and pallor. No ptosis. Neck: Supple, no meningeal signs Oral: dentition fair, no thrush Cardiovascular: S1, S2 normal. Respiratory: Good air entry, clear to auscultation bilaterally GI: Soft, non-tender; bowel sounds normal. No peritoneal signs Musculoskeletal: No pedal edema, no cyanosis. Skin: No rash or abscess Hem/Lymphatic: No palpable cervical or supraclavicular nodes. No lymphangitis Psych: Mood ok. Affect normal Neurological: Awake, alert, oriented. No gross abnormality - Constitutional Vitals: Vital Signs Temp Pulse Resp BP Pulse Ox 98.6 F 94 H 18 129/64 100 11/04/18 11:32 11/04/18 11:32 11/04/18 11:32 11/04/18 11:32 11/04/18 11:32 Temperature -Last 24 Hours Temperature 98.6 F Temperature 98.1 F Temperature 98.2 F Temperature 97.8 F Temperature 98.6 F Temperature 99 F Temperature 99 F Temperature 99 F Temperature 98.7 F Temperature 98.1 F Temperature 98.1 F Temperature 98.7 F Temperature 99.3 F Temperature 100 F Results - Labs CBC & Chem 7: 11/04/18 12:42 11/04/18 03:29 Labs: Abnormal lab results 11/03/18 11/03/18 11/03/18 Range/Units 20:17 20:17 20:21 RBC (3.65-5.03) M/mm3 Hct (30.3-42.9) % RDW (13.2-15.2) % [place] % (Auto) (0.0-7.3) % [place] # (0.0-0.8) K/mm3 Percent Retic (0.78-2.58) % INR 1.15 H (0.87-1.13) VBG pH 7.513 H (7.320-7.420) Sodium (137-145) mmol/L Potassium (3.6-5.0) mmol/L Carbon Dioxide (22-30) mmol/L Creatinine (0.7-1.2) mg/dL Glucose (65-100) mg/dL Calcium (8.4-10.2) mg/dL TIBC (250-450) mcg/dL Total Bilirubin (0.1-1.2) mg/dL Direct Bilirubin (0-0.2) mg/dL AST (5-40) units/L Lactate Dehydrogenase (91-180) units/L Albumin (3.9-5) g/dL Urine WBC (Auto) 19.0 H (0.0-6.0) /HPF U Epithel Cells (Auto) 18.0 H (0-13.0) /HPF Crossmatch 11/03/18 11/03/18 11/03/18 Range/Units 21:01 21:56 21:56 RBC 2.48 L (3.65-5.03) M/mm3 Hct 20.4 L (30.3-42.9) % RDW 20.4 H (13.2-15.2) % [place] % (Auto) 10.0 H (0.0-7.3) % [place] # 1.0 H (0.0-0.8) K/mm3 Percent Retic 12.96 H (0.78-2.58) % INR (0.87-1.13) VBG pH (7.320-7.420) Sodium 133 L (137-145) mmol/L Potassium (3.6-5.0) mmol/L Carbon Dioxide (22-30) mmol/L Creatinine 0.3 L (0.7-1.2) mg/dL Glucose (65-100) mg/dL Calcium (8.4-10.2) mg/dL TIBC (250-450) mcg/dL Total Bilirubin 8.30 H (0.1-1.2) mg/dL Direct Bilirubin 8.0 H (0-0.2) mg/dL AST 42 H (5-40) units/L Lactate Dehydrogenase 672 H (91-180) units/L Albumin (3.9-5) g/dL Urine WBC (Auto) (0.0-6.0) /HPF U Epithel Cells (Auto) (0-13.0) /HPF Crossmatch 11/04/18 11/04/18 11/04/18 Range/Units 01:01 02:29 03:29 RBC 2.09 L (3.65-5.03) M/mm3 Hct 18.0 L* (30.3-42.9) % RDW 20.5 H (13.2-15.2) % [place] % (Auto) (0.0-7.3) % [place] # (0.0-0.8) K/mm3 Percent Retic (0.78-2.58) % INR (0.87-1.13) VBG pH (7.320-7.420) Sodium 134 L (137-145) mmol/L Potassium 3.4 L (3.6-5.0) mmol/L Carbon Dioxide 21 L (22-30) mmol/L Creatinine 0.4 L (0.7-1.2) mg/dL Glucose 107 H (65-100) mg/dL Calcium 7.8 L (8.4-10.2) mg/dL TIBC (250-450) mcg/dL Total Bilirubin 5.10 H (0.1-1.2) mg/dL Direct Bilirubin (0-0.2) mg/dL AST (5-40) units/L Lactate Dehydrogenase (91-180) units/L Albumin 3.6 L (3.9-5) g/dL Urine WBC (Auto) (0.0-6.0) /HPF U Epithel Cells (Auto) (0-13.0) /HPF Crossmatch See Detail 11/04/18 Range/Units 03:29 RBC (3.65-5.03) M/mm3 Hct (30.3-42.9) % RDW (13.2-15.2) % [place] % (Auto) (0.0-7.3) % [place] # (0.0-0.8) K/mm3 Percent Retic (0.78-2.58) % INR (0.87-1.13) VBG pH (7.320-7.420) Sodium (137-145) mmol/L Potassium (3.6-5.0) mmol/L Carbon Dioxide (22-30) mmol/L Creatinine (0.7-1.2) mg/dL Glucose (65-100) mg/dL Calcium (8.4-10.2) mg/dL TIBC 160 L (250-450) mcg/dL Total Bilirubin (0.1-1.2) mg/dL Direct Bilirubin (0-0.2) mg/dL AST (5-40) units/L Lactate Dehydrogenase (91-180) units/L Albumin (3.9-5) g/dL Urine WBC (Auto) (0.0-6.0) /HPF U Epithel Cells (Auto) (0-13.0) /HPF Crossmatch - Imaging and Cardiology CT scan - abdomen: report reviewed, image reviewed (CT abdomen and pelvis showed hepatosplenomegaly. Clear lung bases. Surgically absent gallbladder.) Assessment and Plan Cultures: 11/03/2018 blood culture: In process 11/04/2018 rapid HIV screen: Nonreactive A/P: 28-year-old female with previous cholecystectomy admitted with: 1) Fever with severe anemia, hyperbilirubinemia, elevated LDH, reticulocyte count of 12.96%: Suspect underlying hemolytic process which can cause fevers. Cold antibody related hemolysis can be seen with Mycoplasma infection, no evidence of pneumonia. Discussed with Dr. Julio, Katie was apparently negative . No schistocytes seen. Overall, underlying infectious process seems less likely. OK to give steroids from ID standpoint. No abx for now. HIV negative. No h/o travel. CT shows hepatosplenomegaly. Hematology and GI following. Recs: OK to give steroids from ID standpoint. No abx for now. f/u hepatitis panel Mycoplasma serology ordered Will follow along. D/W Dr. Tiwari and Dr. Julio. Rishi Harris MD, FACP [facility] C: [phone] O: [phone] F: [phone]
[2018-11-04 14:12] LABS: Hematocrit 22.2 % (30.3-42.9); Hemoglobin 8.1 gm/dl (10.1-14.3); Mean Corpuscular HGB Conc 37 % (30-34); Mean Corpuscular Volume 87 fl (79-97); Platelet Count 279 K/mm3 (140-440); Red Blood Count 2.55 M/mm3 (3.65-5.03); Red Cell Distribution Width 18.8 % (13.2-15.2)
--- NOTE | 2018-11-04 16:43 | Magnetic Resonance Report ---
MRI of the abdomen without and with contrast INDICATION: Hyperbilirubinemia, hepatosplenomegaly on CT scan performed yesterday. TECHNIQUE: Axial and coronal imaging was performed through the abdomen prior to and following the adm inistration of intravenous contrast. Multiple images and sequences were utilized. 15 cc of MultiHance is utilized. COMPARISON: CT scan performed on 11/03/2018 FINDINGS: The liver and spleen are enlarged. The liver measures approximately 20 cm in length and the spleen measures approximately 16 cm in length and 13.6 cm in AP dimension. No focal hepatic or splen ic lesions are seen. There is a linear filling defect noted in the proximal common duct 1 axial gradient T2 weighted seque nce, series 5. This is likely pulsation artifact. It does not appear to be a stone. Possible this cou ld represent small amount of linear sludge in the diverticulitis unlikely. The portal vein is patent. The splenic vein is patent. Pancreatic duct is normal. Pancreas kidneys are unremarkable. No focal pancreatic lesion is seen. No adenopathy is seen. The abdominal aorta is diameter. There is been prior cholecystectomy. The adrenal glands are unremark able. IMPRESSION: There is hepatosplenomegaly. No focal hepatic or splenic lesions are seen. Linear filling defect in the proximal common bile duct is likely artifact. Signer Name: Haider Eldridge MD Signed: 11/04/2018 4:39 PM Workstation Name: [id number]
[2018-11-05] MEDS ORDERED: BENADRYL PO NR
[2018-11-05] MEDS: NACL 0.9% 1000 ML 1,000 ML IV SCH ×3 (03:38→23:01)
[2018-11-05 06:57] LABS: Basophils % (Auto) 0.2 % (0.0-1.8); Eosinophils % (Auto) 0.4 % (0.0-4.3); Hematocrit 22.5 % (30.3-42.9); Hemoglobin 8.2 gm/dl (10.1-14.3); Lymphocytes # (Auto) 2.6 K/mm3 (1.2-5.4); Lymphocytes % (Auto) 20.5 % (13.4-35.0); Mean Corpuscular HGB Conc 36 % (30-34); Mean Corpuscular Volume 86 fl (79-97); Platelet Count 299 K/mm3 (140-440); Red Blood Count 2.62 M/mm3 (3.65-5.03); Red Cell Distribution Width 19.1 % (13.2-15.2)
[2018-11-05 07:03] LABS: INR 1.04 (0.87-1.13)
[2018-11-05 07:43] LABS: Alanine Aminotransferase 17 units/L (7-56); Albumin 3.6 g/dL (3.9-5); BUN/Creatinine Ratio 10; Bilirubin,Direct 0.3 mg/dL (0-0.2); Blood Urea Nitrogen 5 mg/dL (7-17); Calcium 8.5 mg/dL (8.4-10.2); Hemolysis Index 7
--- NOTE | 2018-11-05 07:46 | Hem/Onc Progress Note ---
Assessment and Plan 1. Anemia with predominantly high direct bilirubin, the cause is unclear. History of fever and fatigue, chills present. This may be a viral etiology causing some liver function abnormality and hematology issues? As discussed with Dr. William, his verbal information was that retic is not elevated, not significant spherocytes, no schistocytes. Retic percentage is on the higher side. There is a question if this is hemolysis based on retic, LDH and her history versus marrow production issues and based on Dr. William finding, discussed with ID regarding steroid trial. 2. High direct bilirubin, etiology unclear. CT does not show any obstructive etiology. Steroid trial. ? lab error? 3. Hepatosplenomegaly, on Radiology. This may be infectious related. 4. ID team is following the patient. Haptoglobin has been ordered. Schistocytes are not elevated. Platelet count is normal. Folate is on the lower side, replace. PT, PTT is normal. We will follow the patient during inpatient stay. CT hepatosplenomegaly steroid trial folic acid await hapto - Patient Problems (1) Anemia Current Visit: Yes Status: Acute Subjective Date of service: 11/05/18 Principal diagnosis: anemia? hemolysis Interval history: s/p prbc Objective - Exam Narrative Exam: HEENT: Pallor present. Icterus present. NECK: No neck lymph nodes. HEART: S1, S2. LUNGS: Clear to auscultation. ABDOMEN: Soft. EXTREMITIES: No calf tenderness. NEUROLOGIC: Alert, awake. - Constitutional Vitals: Last Vital Signs Temp 98.5 F 11/05/18 04:56 Pulse 82 11/05/18 04:56 Resp 18 11/05/18 04:56 BP 105/55 11/05/18 04:56 Pulse Ox 100 11/05/18 04:56 - Labs Lab Results: Laboratory Results - last 24 hr 11/04/18 11/04/18 11/04/18 01:01 02:29 03:29 WBC 8.9 RBC 2.09 L Hgb Computer Technology Teacher Hct 18.0 L* MCV 86 MCH Computer Technology Teacher MCHC Computer Technology Teacher RDW 20.5 H Plt Count 259 Lymph % (Auto) [place] % (Auto) Eos % (Auto) Baso % (Auto) Lymph # [place] # Eos # Baso # Add Manual Diff Complete Total Counted 100 Seg Neutrophils % Seg Neuts % (Manual) 70.0 Band Neutrophils % 2.0 Lymphocytes % (Manual) 23.0 Reactive Lymphs % (Man) 0 Monocytes % (Manual) 3.0 Eosinophils % (Manual) 2.0 Basophils % (Manual) 0 Metamyelocytes % 0 Myelocytes % 0 Promyelocytes % 0 Blast Cells % 0 Seg Neutrophils # Seg Neutrophils # Man 6.2 Band Neutrophils # 0.2 Lymphocytes # (Manual) 2.0 Abs React Lymphs (Man) 0.0 Monocytes # (Manual) 0.3 Eosinophils # (Manual) 0.2 Basophils # (Manual) 0.0 Metamyelocytes # 0.0 Myelocytes # 0.0 Promyelocytes # 0.0 Blast Cells # 0.0 Pathologist Review Platelet Estimate Consistent w auto Dimorphic RBCs Yes Polychromasia 1+ Anisocytosis 1+ Microcytosis Few Spherocytes 1+ Tear Drop Cells Rare Ovalocytes Few Hem Pathologist Commnt Sent to pathology PT INR Potassium Chloride Carbon Dioxide Anion Gap BUN Creatinine Estimated GFR BUN/Creatinine Ratio Glucose Calcium Iron 81 TIBC 160 L Ferritin Total Bilirubin Direct Bilirubin Indirect Bilirubin AST ALT Alkaline Phosphatase Total Protein Albumin Albumin/Globulin Ratio Vitamin B12 Folate HIV 1&2 Antibody Rapid Non react HIV P24 Antigen Non react Crossmatch See Detail 11/04/18 11/04/18 11/04/18 12:41 12:42 12:42 WBC RBC Hgb Hct MCV MCH MCHC RDW Plt Count Lymph % (Auto) [place] % (Auto) Eos % (Auto) Baso % (Auto) Lymph # [place] # Eos # Baso # Add Manual Diff Total Counted Seg Neutrophils % Seg Neuts % (Manual) Band Neutrophils % Lymphocytes % (Manual) Reactive Lymphs % (Man) Monocytes % (Manual) Eosinophils % (Manual) Basophils % (Manual) Metamyelocytes % Myelocytes % Promyelocytes % Blast Cells % Seg Neutrophils # Seg Neutrophils # Man Band Neutrophils # Lymphocytes # (Manual) Abs React Lymphs (Man) Monocytes # (Manual) Eosinophils # (Manual) Basophils # (Manual) Metamyelocytes # Myelocytes # Promyelocytes # Blast Cells # Pathologist Review Platelet Estimate Dimorphic RBCs Polychromasia Anisocytosis Microcytosis Spherocytes Tear Drop Cells Ovalocytes Hem Pathologist Commnt PT INR Potassium Chloride Carbon Dioxide Anion Gap BUN Creatinine Estimated GFR BUN/Creatinine Ratio Glucose Calcium Iron TIBC Ferritin 457.2 H Total Bilirubin Direct Bilirubin Indirect Bilirubin AST ALT Alkaline Phosphatase Total Protein Albumin Albumin/Globulin Ratio Vitamin B12 347.9 Folate 5.10 L HIV 1&2 Antibody Rapid HIV P24 Antigen Crossmatch 11/04/18 11/05/18 11/05/18 12:42 06:24 06:24 WBC 8.4 12.4 H RBC 2.55 L 2.62 L Hgb 8.1 L 8.2 L Hct 22.2 L 22.5 L MCV 87 86 MCH 32 31 MCHC 37 H 36 H RDW 18.8 H 19.1 H Plt Count 279 299 Lymph % (Auto) 20.5 [place] % (Auto) 8.0 H Eos % (Auto) 0.4 Baso % (Auto) 0.2 Lymph # 2.6 [place] # 1.0 H Eos # 0.0 Baso # 0.0 Add Manual Diff Total Counted Seg Neutrophils % 70.9 H Seg Neuts % (Manual) Band Neutrophils % Lymphocytes % (Manual) Reactive Lymphs % (Man) Monocytes % (Manual) Eosinophils % (Manual) Basophils % (Manual) Metamyelocytes % Myelocytes % Promyelocytes % Blast Cells % Seg Neutrophils # 8.8 H Seg Neutrophils # Man Band Neutrophils # Lymphocytes # (Manual) Abs React Lymphs (Man) Monocytes # (Manual) Eosinophils # (Manual) Basophils # (Manual) Metamyelocytes # Myelocytes # Promyelocytes # Blast Cells # Pathologist Review Platelet Estimate Dimorphic RBCs Polychromasia Anisocytosis Microcytosis Spherocytes Tear Drop Cells Ovalocytes Hem Pathologist Commnt PT INR Potassium 3.7 Chloride 107.6 H Carbon Dioxide 23 Anion Gap 15 BUN 5 L Creatinine 0.5 L Estimated GFR > 60 BUN/Creatinine Ratio 10 Glucose 106 H Calcium 8.5 Iron TIBC Ferritin Total Bilirubin 4.90 H Direct Bilirubin 0.3 H Indirect Bilirubin 4.6 AST 22 ALT 17 Alkaline Phosphatase 46 Total Protein 6.8 Albumin 3.6 L Albumin/Globulin Ratio 1.1 Vitamin B12 Folate HIV 1&2 Antibody Rapid HIV P24 Antigen Crossmatch 11/05/18 06:24 WBC RBC Hgb Hct MCV MCH MCHC RDW Plt Count Lymph % (Auto) [place] % (Auto) Eos % (Auto) Baso % (Auto) Lymph # [place] # Eos # Baso # Add Manual Diff Total Counted Seg Neutrophils % Seg Neuts % (Manual) Band Neutrophils % Lymphocytes % (Manual) Reactive Lymphs % (Man) Monocytes % (Manual) Eosinophils % (Manual) Basophils % (Manual) Metamyelocytes % Myelocytes % Promyelocytes % Blast Cells % Seg Neutrophils # Seg Neutrophils # Man Band Neutrophils # Lymphocytes # (Manual) Abs React Lymphs (Man) Monocytes # (Manual) Eosinophils # (Manual) Basophils # (Manual) Metamyelocytes # Myelocytes # Promyelocytes # Blast Cells # Pathologist Review Platelet Estimate Dimorphic RBCs Polychromasia Anisocytosis Microcytosis Spherocytes Tear Drop Cells Ovalocytes Hem Pathologist Commnt PT 13.3 INR 1.04 Potassium Chloride Carbon Dioxide Anion Gap BUN Creatinine Estimated GFR BUN/Creatinine Ratio Glucose Calcium Iron TIBC Ferritin Total Bilirubin Direct Bilirubin Indirect Bilirubin AST ALT Alkaline Phosphatase Total Protein Albumin Albumin/Globulin Ratio Vitamin B12 Folate HIV 1&2 Antibody Rapid HIV P24 Antigen Crossmatch Medications & Allergies - Medications Allergies/Adverse Reactions: Allergies No Known Allergies Allergy (Verified 11/03/18 00:42) Home Medications: Home Medications Medication Instructions Recorded Confirmed Last Taken Type No Known Home Medications [No 11/03/18 11/03/18 Unknown History Reported Home Medications] Active Medications: Generic Name Dose Route Start Last Admin Trade Name Freq PRN Reason Stop Dose Admin Acetaminophen 650 mg 11/04/18 02:29 11/04/18 05:31 Tylenol PO 650 mg Q4H PRN Administration Pain MILD(1-3)/Fever >100.5/ALVAREZ Sodium Chloride 1,000 mls @ 125 mls/hr 11/04/18 03:00 11/05/18 03:38 Nacl 0.9% 1000 Ml IV 125 mls/hr DIRECT LISANDRA Administration Multivit/Ca Carb/B Cmplx/FA/Prenat 1 cap 11/04/18 14:00 11/04/18 13:32 Renal Caps PO 1 cap QDAY LISANDRA Administration Ondansetron HCl 4 mg 11/04/18 02:29 Zofran IV Q8H PRN Nausea And Vomiting Prednisone 60 mg 11/04/18 14:00 11/04/18 13:33 Deltasone PO 60 mg QDAY LISANDRA Administration Sodium Chloride 10 ml 11/04/18 10:00 11/04/18 21:17 Sodium Chloride Flush Syringe 10 Ml IV 10 ml BID LISANDRA Administration Sodium Chloride 10 ml 11/04/18 02:29 Sodium Chloride Flush Syringe 10 Ml IV PRN PRN LINE FLUSH
[2018-11-05] MEDS: SODIUM CHLORIDE FLUSH SYRINGE 10 ML IV SCH ×2 (09:47→23:02)
[2018-11-05] MEDS: DELTASONE PO SCH (09:47)
[2018-11-05] MEDS: Renal Caps PO SCH (09:47)
--- NOTE | 2018-11-05 10:37 | Progress Note ---
Assessment and Plan ultures: 11/03/2018 blood culture: In process 11/04/2018 rapid HIV screen: Nonreactive A/P: 28-year-old female with previous cholecystectomy admitted with: 1) Fever, Improved. with severe anemia, hyperbilirubinemia, elevated LDH, reticulocyte count of 12.96%: Suspect underlying hemolytic process which can cause fevers. Cold antibody related hemolysis can be seen with Mycoplasma infec tion, no evidence of pneumonia. Discussed with Dr. Julio, Katie was apparently negative. No schistocytes seen. Overall, underlying infectious process seems less likely. OK to give steroids from ID standpoint. No abx for now. HIV negative. No h/o travel. CT shows hepatosplenomegaly. Hematology and GI following. Recs: f/u hepatitis panel f/u Mycoplasma serology [facility] M: [phone] O:[phone] Subjective Date of service: 11/05/18 Interval history: patient seen and examined. Sitting up in bed. Reports no generalized pain or weakness. No fevers. Objective - Exam Narrative Exam: Constitutional: Alert, cooperative. No acute distress Head, Ears, Nose: Normocephalic, atraumatic. External ears, nose normal Eyes: Conjunctivae/corneas clear. + icterus and pallor. No ptosis. Neck: Supple, no meningeal signs Oral: dentition fair, no thrush Cardiovascular: S1, S2 normal. Respiratory: Good air entry, clear to auscultation bilaterally GI: Soft, non-tender; bowel sounds normal. No peritoneal signs Musculoskeletal: No pedal edema, no cyanosis. Skin: No rash or abscess Hem/Lymphatic: No palpable cervical or supraclavicular nodes. No lymphangitis Psych: Mood ok. Affect normal Neurological: Awake, alert, oriented. No gross abnormality - Constitutional Vitals: Vital Signs Temp Pulse Resp BP Pulse Ox 98.5 F 81 18 91/42 100 11/05/18 04:56 11/05/18 08:20 11/05/18 04:56 11/05/18 08:20 11/05/18 08:20 Temperature -Last 24 Hours Temperature 98.5 F Temperature 98.3 F Temperature 98.1 F Temperature 98.7 F Temperature 98.6 F - Labs CBC & Chem 7: 11/05/18 06:24 11/05/18 06:24 Labs: Abnormal lab results 11/04/18 11/04/18 11/04/18 Range/Units 03:29 12:41 12:42 WBC (4.5-11.0) K/mm3 RBC (3.65-5.03) M/mm3 Hgb (10.1-14.3) gm/dl Hct (30.3-42.9) % MCHC (30-34) % RDW (13.2-15.2) % [place] % (Auto) (0.0-7.3) % [place] # (0.0-0.8) K/mm3 Seg Neutrophils % (40.0-70.0) % Seg Neutrophils # (1.8-7.7) K/mm3 Chloride (98-107) mmol/L BUN (7-17) mg/dL Creatinine (0.7-1.2) mg/dL Glucose (65-100) mg/dL TIBC 160 L (250-450) mcg/dL Ferritin 457.2 H (13.0-400.0) ng/mL Total Bilirubin (0.1-1.2) mg/dL Direct Bilirubin (0-0.2) mg/dL Albumin (3.9-5) g/dL Folate 5.10 L (7.3-26.0) ng/mL 11/04/18 11/05/18 11/05/18 Range/Units 12:42 06:24 06:24 WBC 12.4 H (4.5-11.0) K/mm3 RBC 2.55 L 2.62 L (3.65-5.03) M/mm3 Hgb 8.1 L 8.2 L (10.1-14.3) gm/dl Hct 22.2 L 22.5 L (30.3-42.9) % MCHC 37 H 36 H (30-34) % RDW 18.8 H 19.1 H (13.2-15.2) % [place] % (Auto) 8.0 H (0.0-7.3) % [place] # 1.0 H (0.0-0.8) K/mm3 Seg Neutrophils % 70.9 H (40.0-70.0) % Seg Neutrophils # 8.8 H (1.8-7.7) K/mm3 Chloride 107.6 H (98-107) mmol/L BUN 5 L (7-17) mg/dL Creatinine 0.5 L (0.7-1.2) mg/dL Glucose 106 H (65-100) mg/dL TIBC (250-450) mcg/dL Ferritin (13.0-400.0) ng/mL Total Bilirubin 4.90 H (0.1-1.2) mg/dL Direct Bilirubin 0.3 H (0-0.2) mg/dL Albumin 3.6 L (3.9-5) g/dL Folate (7.3-26.0) ng/mL
[2018-11-05 11:40] LABS: Hepatitis B Surface Antigen Non-Reactive (Negative); Hepatitis C Virus Antibody Non-Reactive (NonReactive)
--- NOTE | 2018-11-05 11:56 | Consultation ---
REFERRED BY: Dr. Tiwari. REASON FOR CONSULTATION: Anemia. HISTORY OF PRESENT ILLNESS: I saw the patient, a 28-year-old female on the medical floor. The patient has a history of cholecystectomy. She came to the hospital because of 3-4 days of fever, fatigue, chills and body ache. Temperature was 100.4. She was found to be anemic and the bilirubin was high. It was predominantly direct bilirubin, LDH was elevated. I have been asked to evaluate the patient because of anemia. Katie test was negative. At this time, the patient received Benadryl for blood transfusion. No headache, no chest pain, no shortness of breath, no vomiting, no diarrhea, no dysuria. History of fever present as above. PAST MEDICAL HISTORY: Gallbladder surgery a few years ago. No history of sickle cell disease. PAST MEDICAL HISTORY: As above. PAST SURGICAL HISTORY: Gallbladder. SOCIAL HISTORY: History of alcohol present. No history of smoking. FAMILY HISTORY: Hypertension. No history of IV drug usage. No history of travel. No history of sickle cell disease. PHYSICAL EXAMINATION: VITAL SIGNS: Temperature 98, pulse 82, respirations 18, BP 105/55. HEENT: Pallor present. Icterus present. NECK: No neck lymph nodes. HEART: S1, S2. LUNGS: Clear to auscultation. ABDOMEN: Soft. EXTREMITIES: No calf tenderness. NEUROLOGIC: Alert, awake. LABORATORY DATA: White cell 8.9, hemoglobin was not calculable, hematocrit was 18, platelet is 259, MCV 86. Potassium 3.4, creatinine 0.4, calcium 7.8. Serum iron 81, ferritin 457. Direct bilirubin was 8, total was 8.3 and then it became 5. B12 of 347, folate 5.1, hCG negative, HIV negative. RADIOLOGY: Shows hepatosplenomegaly. ASSESSMENT AND PLAN: 1. Anemia with predominantly high direct bilirubin, the cause is unclear. History of fever and fatigue, chills present. This may be a viral etiology causing some liver function abnormality and hematology issues? As discussed with Dr. William, his verbal information was that retic is not elevated, not significant spherocytes, no schistocytes. Retic percentage is on the higher side. There is a question if this is hemolysis based on retic, LDH and her history versus marrow production issues and based on Dr. William finding, discussed with ID regarding steroid trial. 2. High direct bilirubin, etiology unclear. CT does not show any obstructive etiology. Steroid trial. 3. Hepatosplenomegaly, on Radiology. This may be infectious related. 4. ID team is following the patient. Haptoglobin has been ordered. Schistocytes are not elevated. Platelet count is normal. Folate is on the lower side, replace. PT, PTT is normal. We will follow the patient during inpatient stay. JOB# [id number] NM/NTS
--- NOTE | 2018-11-05 13:17 | Gastroenterology Progress Note ---
<MARYBETH MARINA - Last Filed: 11/05/18 13:12> Assessment and Plan 1.hyperbilirubinemia (chronic) 2.anemia-chronic -T.isaac 4.90-trending down- indirect 4.6, direct 0.3 -AST, ALT, and alk phos WNL -INR and plt WNL -MCV WNL, iron 81 -acute hepatitis panel negative -TRAN and AMA pending -H/H- 8.2/22.5-s/p transfusion PRBCs -continue to monitor H/H and transfuse as needed -abd CT and MRI showed hepatosplenomegaly -etiology- most likely 2/2 hemolytic process given severe anemia -clinically, patient is w/o GI complaints or active signs of GI bleeding. -continue supportive care -no further recommendations per GI standpoint at this time -will defer further workup/management per heme -will sign off, please call if needed Subjective Date of service: 11/05/18 Principal diagnosis: hyperbilirubinemia Interval history: No acute distress Objective - Constitutional Vitals: Temp Pulse Resp BP Pulse Ox 98.5 F 81 18 91/42 100 11/05/18 04:56 11/05/18 08:20 11/05/18 04:56 11/05/18 08:20 11/05/18 12:31 General appearance: no acute distress - Respiratory Respiratory effort: normal - Cardiovascular Rhythm: regular - Gastrointestinal General gastrointestinal: Present: soft, non-tender, non-distended, normal bowel sounds - Labs CBC & Chem 7: 11/05/18 06:24 11/05/18 06:24 Labs: Laboratory Results - last 24 hr 11/04/18 11/04/18 11/04/18 02:29 12:41 12:42 WBC RBC Hgb Hct MCV MCH MCHC RDW Plt Count Lymph % (Auto) Divide % (Auto) Eos % (Auto) Baso % (Auto) Lymph # Divide # Eos # Baso # Seg Neutrophils % Seg Neutrophils # Pathologist Review WBC Morphology Not Reportable PT INR Sodium Potassium Chloride Carbon Dioxide Anion Gap BUN Creatinine Estimated GFR BUN/Creatinine Ratio Glucose Calcium Ferritin 457.2 H Total Bilirubin Direct Bilirubin Indirect Bilirubin AST ALT Alkaline Phosphatase Total Protein Albumin Albumin/Globulin Ratio Vitamin B12 Folate 5.10 L Hepatitis A IgM Ab Hep Bs Antigen Hep B Core IgM Ab Hepatitis C Antibody 11/04/18 11/04/18 11/05/18 12:42 12:42 06:24 WBC 8.4 12.4 H RBC 2.55 L 2.62 L Hgb 8.1 L 8.2 L Hct 22.2 L 22.5 L MCV 87 86 MCH 32 31 MCHC 37 H 36 H RDW 18.8 H 19.1 H Plt Count 279 299 Lymph % (Auto) 20.5 Divide % (Auto) 8.0 H Eos % (Auto) 0.4 Baso % (Auto) 0.2 Lymph # 2.6 Divide # 1.0 H Eos # 0.0 Baso # 0.0 Seg Neutrophils % 70.9 H Seg Neutrophils # 8.8 H Pathologist Review WBC Morphology PT INR Sodium Potassium Chloride Carbon Dioxide Anion Gap BUN Creatinine Estimated GFR BUN/Creatinine Ratio Glucose Calcium Ferritin Total Bilirubin Direct Bilirubin Indirect Bilirubin AST ALT Alkaline Phosphatase Total Protein Albumin Albumin/Globulin Ratio Vitamin B12 347.9 Folate Hepatitis A IgM Ab Hep Bs Antigen Hep B Core IgM Ab Hepatitis C Antibody 11/05/18 11/05/18 11/05/18 06:24 06:24 06:24 WBC RBC Hgb Hct MCV MCH MCHC RDW Plt Count Lymph % (Auto) Divide % (Auto) Eos % (Auto) Baso % (Auto) Lymph # Divide # Eos # Baso # Seg Neutrophils % Seg Neutrophils # Pathologist Review WBC Morphology PT 13.3 INR 1.04 Sodium 142 D Potassium 3.7 Chloride 107.6 H Carbon Dioxide 23 Anion Gap 15 BUN 5 L Creatinine 0.5 L Estimated GFR > 60 BUN/Creatinine Ratio 10 Glucose 106 H Calcium 8.5 Ferritin Total Bilirubin 4.90 H Direct Bilirubin 0.3 H Indirect Bilirubin 4.6 AST 22 ALT 17 Alkaline Phosphatase 46 Total Protein 6.8 Albumin 3.6 L Albumin/Globulin Ratio 1.1 Vitamin B12 Folate Hepatitis A IgM Ab Non-reactive Hep Bs Antigen Non-reactive Hep B Core IgM Ab Non-reactive Hepatitis C Antibody Non-reactive <DORIAN SPAIN - Last Filed: 11/05/18 13:29> Assessment and Plan Pt seen and examined; agree with note above. denies gi complaints; bilirubin primarily indirect. no obstructive process on MRI. suspect hematologic etiology. Will sign off, please call as needed or with questions. autoimmune serologies pending. Objective - Constitutional Vitals: Temp Pulse Resp BP Pulse Ox 98.5 F 81 18 91/42 100 11/05/18 04:56 11/05/18 08:20 11/05/18 04:56 11/05/18 08:20 11/05/18 12:31 - Labs CBC & Chem 7: 11/05/18 06:24 11/05/18 06:24 Labs: Laboratory Results - last 24 hr 11/04/18 11/04/18 11/04/18 02:29 12:41 12:42 WBC RBC Hgb Hct MCV MCH MCHC RDW Plt Count Lymph % (Auto) Divide % (Auto) Eos % (Auto) Baso % (Auto) Lymph # Divide # Eos # Baso # Seg Neutrophils % Seg Neutrophils # Pathologist Review WBC Morphology Not Reportable PT INR Sodium Potassium Chloride Carbon Dioxide Anion Gap BUN Creatinine Estimated GFR BUN/Creatinine Ratio Glucose Calcium Ferritin 457.2 H Total Bilirubin Direct Bilirubin Indirect Bilirubin AST ALT Alkaline Phosphatase Total Protein Albumin Albumin/Globulin Ratio Vitamin B12 Folate 5.10 L Hepatitis A IgM Ab Hep Bs Antigen Hep B Core IgM Ab Hepatitis C Antibody 11/04/18 11/04/18 11/05/18 12:42 12:42 06:24 WBC 8.4 12.4 H RBC 2.55 L 2.62 L Hgb 8.1 L 8.2 L Hct 22.2 L 22.5 L MCV 87 86 MCH 32 31 MCHC 37 H 36 H RDW 18.8 H 19.1 H Plt Count 279 299 Lymph % (Auto) 20.5 Divide % (Auto) 8.0 H Eos % (Auto) 0.4 Baso % (Auto) 0.2 Lymph # 2.6 Divide # 1.0 H Eos # 0.0 Baso # 0.0 Seg Neutrophils % 70.9 H Seg Neutrophils # 8.8 H Pathologist Review WBC Morphology PT INR Sodium Potassium Chloride Carbon Dioxide Anion Gap BUN Creatinine Estimated GFR BUN/Creatinine Ratio Glucose Calcium Ferritin Total Bilirubin Direct Bilirubin Indirect Bilirubin AST ALT Alkaline Phosphatase Total Protein Albumin Albumin/Globulin Ratio Vitamin B12 347.9 Folate Hepatitis A IgM Ab Hep Bs Antigen Hep B Core IgM Ab Hepatitis C Antibody 11/05/18 11/05/18 11/05/18 06:24 06:24 06:24 WBC RBC Hgb Hct MCV MCH MCHC RDW Plt Count Lymph % (Auto) Divide % (Auto) Eos % (Auto) Baso % (Auto) Lymph # Divide # Eos # Baso # Seg Neutrophils % Seg Neutrophils # Pathologist Review WBC Morphology PT 13.3 INR 1.04 Sodium 142 D Potassium 3.7 Chloride 107.6 H Carbon Dioxide 23 Anion Gap 15 BUN 5 L Creatinine 0.5 L Estimated GFR > 60 BUN/Creatinine Ratio 10 Glucose 106 H Calcium 8.5 Ferritin Total Bilirubin 4.90 H Direct Bilirubin 0.3 H Indirect Bilirubin 4.6 AST 22 ALT 17 Alkaline Phosphatase 46 Total Protein 6.8 Albumin 3.6 L Albumin/Globulin Ratio 1.1 Vitamin B12 Folate Hepatitis A IgM Ab Non-reactive Hep Bs Antigen Non-reactive Hep B Core IgM Ab Non-reactive Hepatitis C Antibody Non-reactive
--- NOTE | 2018-11-05 18:53 | Progress Note ---
Assessment and Plan - Patient Problems (1) Fever Current Visit: Yes Status: Acute Plan to address problem: Patient fever has resolved apparent injury seems to be resolving overall. Patient has increased strength fever curve is gone down jaundice is improving. Exact etiology unknown. Fever most likely secondary to hemolytic process. All antibiotics required at present time. (2) Hemolytic anemia Current Visit: Yes Status: Acute Plan to address problem: Hemolytic anemia bilirubin resolving. Anemia able after transfusion exact etiology unknown. Does not appear to be infectious etiology. Lupus ruled out. Blood disorders could potentially be myeloproliferative disease of leukemia of some sort but unlikely. TRAN negative still's disease are unremarkable. Patient did have symptoms when she was a little child. Could be something consistent with glycogen storage disease GAUCHes. Patient seems to be improving however. Could have further workup on an outpatient basis if she continues to improve. We'll await any hematology recommendations. (3) Hepatosplenomegaly Current Visit: Yes Status: Acute Plan to address problem: Secondary to the hemolytic process. Visualized on CT scan we'll observe. (4) Hyperbilirubinemia Current Visit: Yes Status: Resolved History Interval history: Patient Hospital course overnight unremarkable. Patient states she feels stronger. No pain at present. Set down at bedside and attempted to explain p rocess and plan as well as I could to patient and is very complicated hospital course. Hospitalist Physical - Constitutional Vitals: Temp Pulse Resp BP Pulse Ox 98.2 F 94 H 16 122/72 99 11/05/18 17:00 11/05/18 17:00 11/05/18 17:00 11/05/18 17:00 11/05/18 17:00 General appearance: Present: no acute distress, well-nourished, other (jaundice) - EENT Eyes: Present: PERRL, EOM intact, irregular pupil ENT: hearing intact, clear oral mucosa, dentition normal, other (jaundice) - Neck Neck: Present: supple, normal ROM. Absent: enlarged thyroid, masses or JVD, cervical LAD, carotid bruits - Respiratory Respiratory: bilateral: CTA - Cardiovascular Rhythm: regular - Extremities Extremities: no ischemia, pulses intact, pulses symmetrical, No edema, normal temperature, normal color Peripheral Pulses: within normal limits - Abdominal General gastrointestinal: soft, non-tender, non-distended, normal bowel sounds, hepatomegaly, splenomegaly, mass, other (not visible on exam.) - Integumentary Integumentary: Present: clear, warm, dry - Psychiatric Psychiatric: appropriate mood/affect, intact judgment & insight, memory intact - Neurologic Neurologic: CNII-XII intact, moves all extremities Results - Labs CBC & Chem 7: 11/05/18 06:24 11/05/18 06:24 Labs: Laboratory Last Values WBC 12.4 K/mm3 (4.5-11.0) H 11/05/18 06:24 RBC 2.62 M/mm3 (3.65-5.03) L 11/05/18 06:24 Hgb 8.2 gm/dl (10.1-14.3) L 11/05/18 06:24 Hct 22.5 % (30.3-42.9) L 11/05/18 06:24 MCV 86 fl (79-97) 11/05/18 06:24 MCH 31 pg (28-32) 11/05/18 06:24 MCHC 36 % (30-34) H 11/05/18 06:24 RDW 19.1 % (13.2-15.2) H 11/05/18 06:24 Plt Count 299 K/mm3 (140-440) 11/05/18 06:24 Lymph % (Auto) 20.5 % (13.4-35.0) 11/05/18 06:24 [place] % (Auto) 8.0 % (0.0-7.3) H 11/05/18 06:24 Eos % (Auto) 0.4 % (0.0-4.3) 11/05/18 06:24 Baso % (Auto) 0.2 % (0.0-1.8) 11/05/18 06:24 Lymph # 2.6 K/mm3 (1.2-5.4) 11/05/18 06:24 [place] # 1.0 K/mm3 (0.0-0.8) H 11/05/18 06:24 Eos # 0.0 K/mm3 (0.0-0.4) 11/05/18 06:24 Baso # 0.0 K/mm3 (0.0-0.1) 11/05/18 06:24 Add Manual Diff Complete 11/04/18 02:29 Total Counted 100 11/04/18 02:29 Seg Neutrophils % 70.9 % (40.0-70.0) H 11/05/18 06:24 Seg Neuts % (Manual) 70.0 % (40.0-70.0) 11/04/18 02:29 2.0 % 11/04/18 02:29 23.0 % (13.4-35.0) 11/04/18 02:29 Reactive Lymphs % (Man) 0 % 11/04/18 02:29 3.0 % (0.0-7.3) 11/04/18 02:29 2.0 % (0.0-4.3) 11/04/18 02:29 0 % (0.0-1.8) 11/04/18 02:29 0 % 11/04/18 02:29 0 % 11/04/18 02:29 0 % 11/04/18 02:29 0 % 11/04/18 02:29 Nucleated RBC % Not Reportable 11/04/18 02:29 Seg Neutrophils # 8.8 K/mm3 (1.8-7.7) H 11/05/18 06:24 Seg Neutrophils # Man 6.2 K/mm3 (1.8-7.7) 11/04/18 02:29 Band Neutrophils # 0.2 K/mm3 11/04/18 02:29 2.0 K/mm3 (1.2-5.4) 11/04/18 02:29 Abs React Lymphs (Man) 0.0 K/mm3 11/04/18 02:29 0.3 K/mm3 (0.0-0.8) 11/04/18 02:29 0.2 K/mm3 (0.0-0.4) 11/04/18 02:29 0.0 K/mm3 (0.0-0.1) 11/04/18 02:29 0.0 K/mm3 11/04/18 02:29 0.0 K/mm3 11/04/18 02:29 0.0 K/mm3 11/04/18 02:29 Blast Cells # 0.0 K/mm3 11/04/18 02:29 Pathologist Review 11/04/18 02:29 WBC Morphology Not Reportable 11/04/18 02:29 Hypersegmented Neuts Not Reportable 11/04/18 02:29 Hyposegmented Neuts Not Reportable 11/04/18 02:29 Hypogranular Neuts Not Reportable 11/04/18 02:29 Not Reportable 11/04/18 02:29 Not Reportable 11/04/18 02:29 Not Reportable 11/04/18 02:29 Not Reportable 11/04/18 02:29 Not Reportable 11/04/18 02:29 Not Reportable 11/04/18 02:29 Consistent w auto 11/04/18 02:29 Not Reportable 11/04/18 02:29 Plt Clumps, EDTA Not Reportable 11/04/18 02:29 Not Reportable 11/04/18 02:29 Not Reportable 11/04/18 02:29 Not Reportable 11/04/18 02:29 Plt Morphology Comment Not Reportable 11/04/18 02:29 RBC Morphology Not Reportable 11/04/18 02:29 Dimorphic RBCs Yes 11/04/18 02:29 1+ 11/04/18 02:29 Not Reportable 11/04/18 02:29 Not Reportable 11/04/18 02:29 1+ 11/04/18 02:29 Few 11/04/18 02:29 Not Reportable 11/04/18 02:29 1+ 11/04/18 02:29 Not Reportable 11/04/18 02:29 Not Reportable 11/04/18 02:29 Not Reportable 11/04/18 02:29 Rare 11/04/18 02:29 Few 11/04/18 02:29 Not Reportable 11/04/18 02:29 Not Reportable 11/04/18 02:29 Not Reportable 11/04/18 02:29 Not Reportable 11/04/18 02:29 Not Reportable 11/04/18 02:29 Not Reportable 11/04/18 02:29 Not Reportable 11/04/18 02:29 Acanthocytes (Spur) Not Reportable 11/04/18 02:29 Rouleaux Not Reportable 11/04/18 02:29 Not Reportable 11/04/18 02:29 Not Reportable 11/04/18 02:29 Not Reportable 11/04/18 02:29 Percent Retic 12.96 % (0.78-2.58) H 11/03/18 21:56 Not Reportable 11/04/18 02:29 Hem Pathologist Commnt Sent to pathology 11/04/18 02:29 PT 13.3 Sec. (12.2-14.9) 11/05/18 06:24 INR 1.04 (0.87-1.13) 11/05/18 06:24 APTT 24.4 Sec. (24.2-36.6) 11/03/18 20:17 VBG pH 7.513 (7.320-7.420) H 11/03/18 20:17 Sodium 142 mmol/L (137-145) D 11/05/18 06:24 Potassium 3.7 mmol/L (3.6-5.0) 11/05/18 06:24 Chloride 107.6 mmol/L (98-107) H 11/05/18 06:24 Carbon Dioxide 23 mmol/L (22-30) 11/05/18 06:24 15 mmol/L 11/05/18 06:24 BUN 5 mg/dL (7-17) L 11/05/18 06:24 0.5 mg/dL (0.7-1.2) L 11/05/18 06:24 Estimated GFR > 60 ml/min 11/05/18 06:24 10 % 11/05/18 06:24 Glucose 106 mg/dL (65-100) H 11/05/18 06:24 Lactic Acid 0.70 mmol/L (0.7-2.0) 11/03/18 23:12 Calcium 8.5 mg/dL (8.4-10.2) 11/05/18 06:24 Magnesium 2.00 mg/dL (1.7-2.3) 11/03/18 20:17 Iron 81 ug/dL (37-170) 11/04/18 03:29 TIBC 160 mcg/dL (250-450) L 11/04/18 03:29 457.2 ng/mL (13.0-400.0) H 11/04/18 12:41 4.90 mg/dL (0.1-1.2) H 11/05/18 06:24 0.3 mg/dL (0-0.2) H 11/05/18 06:24 4.6 mg/dL 11/05/18 06:24 AST 22 units/L (5-40) 11/05/18 06:24 ALT 17 units/L (7-56) 11/05/18 06:24 46 units/L (35-129) 11/05/18 06:24 672 units/L (91-180) H 11/03/18 21:01 6.8 g/dL (6.3-8.2) 11/05/18 06:24 3.6 g/dL (3.9-5) L 11/05/18 06:24 1.1 % 11/05/18 06:24 15 units/L (13-60) 11/03/18 20:17 Vitamin B12 347.9 pg/mL (211-911) 11/04/18 12:42 5.10 ng/mL (7.3-26.0) L 11/04/18 12:42 HCG, Qual Negative (Negative) 11/03/18 20:17 Bhargavi (Yellow) 11/03/18 20:21 Slightly-cloudy (Clear) 11/03/18 20:21 6.0 (5.0-7.0) 11/03/18 20:21 Ur Specific [place] 1.025 (1.003-1.030) 11/03/18 20:21 100 mg/dl mg/dL (Negative) 11/03/18 20:21 Neg mg/dL (Negative) 11/03/18 20:21 Neg mg/dL (Negative) 11/03/18 20:21 Neg (Negative) 11/03/18 20:21 Neg (Negative) 11/03/18 20:21 Neg (Negative) 11/03/18 20:21 4.0 mg/dL (<2.0) 11/03/18 20:21 Ur Leukocyte Esterase Lg (Negative) 11/03/18 20:21 19.0 /HPF (0.0-6.0) H 11/03/18 20:21 3.0 /HPF (0.0-6.0) 11/03/18 20:21 U Epithel Cells (Auto) 18.0 /HPF (0-13.0) H 11/03/18 20:21 1+ /HPF (Negative) 11/03/18 20:21 Few /HPF 11/03/18 20:21 EBV Capsid Ag IgG, IgM <36.00 U/mL (<36.00) 11/04/18 02:29 EBV Capsid Ag IgG Titer 35.80 U/mL (<18.00) H 11/04/18 02:29 EBV Nuclear Ag IgG Indx 37.50 U/mL (<18.00) H 11/04/18 02:29 EBV Interpretation Past 11/04/18 02:29 Hepatitis A IgM Ab Non-reactive (NonReactive) 11/05/18 06:24 Hep Bs Antigen Non-reactive (Negative) 11/05/18 06:24 Hep B Core IgM Ab Non-reactive (NonReactive) 11/05/18 06:24 Non-reactive (NonReactive) 11/05/18 06:24 HIV 1&2 Antibody Rapid Non react (Non React) 11/04/18 02:29 Non react (Non React) 11/04/18 02:29 None seen 11/03/18 21:56 Blood Type O POSITIVE 11/04/18 01:01 Antibody Screen Negative 11/04/18 01:01 Direct Antiglob Test Negative 11/04/18 01:01 PATRIC, Poly Interpret Negative 11/04/18 01:01 Crossmatch See Detail 11/04/18 01:01 Active Medications - Current Medications Current Medications: Generic Name Dose Route Start Last Admin Trade Name Freq PRN Reason Stop Dose Admin Acetaminophen 650 mg 11/04/18 02:29 11/04/18 05:31 Tylenol PO 650 mg Q4H PRN Administration Pain MILD(1-3)/Fever >100.5/ALVAREZ Sodium Chloride 1,000 mls @ 125 mls/hr 11/04/18 03:00 11/05/18 11:20 Nacl 0.9% 1000 Ml IV 125 mls/hr DIRECT LISANDRA Administration Multivit/Ca Carb/B Cmplx/FA/Prenat 1 cap 11/04/18 14:00 11/05/18 09:47 Renal Caps PO 1 cap QDAY LISANDRA Administration Ondansetron HCl 4 mg 11/04/18 02:29 Zofran IV Q8H PRN Nausea And Vomiting Prednisone 60 mg 11/04/18 14:00 11/05/18 09:47 Deltasone PO 60 mg QDAY LISANDRA Administration Sodium Chloride 10 ml 11/04/18 10:00 11/05/18 09:47 Sodium Chloride Flush Syringe 10 Ml IV 10 ml BID LISANDRA Administration Sodium Chloride 10 ml 11/04/18 02:29 Sodium Chloride Flush Syringe 10 Ml IV PRN PRN LINE FLUSH Nutrition/Malnutrition Assess - Attestation Statement I have reviewed and agreed w/ Malnutrition eval & tx plan: Yes
[2018-11-06] MEDS: NACL 0.9% 1000 ML 1,000 ML IV SCH ×3 (06:28→21:39)
[2018-11-06 08:29] LABS: Basophils % (Auto) 0.3 % (0.0-1.8); Eosinophils # (Auto) 0.1 K/mm3 (0.0-0.4); Eosinophils % (Auto) 0.7 % (0.0-4.3); Hematocrit 21.2 % (30.3-42.9); Hemoglobin 7.8 gm/dl (10.1-14.3); Lymphocytes # (Auto) 4.5 K/mm3 (1.2-5.4); Lymphocytes % (Auto) 30.8 % (13.4-35.0); Mean Corpuscular HGB Conc 37 % (30-34); Mean Corpuscular Volume 87 fl (79-97); Monocytes # (Auto) 0.7 K/mm3 (0.0-0.8); Monocytes % (Auto) 4.7 % (0.0-7.3); Platelet Count 274 K/mm3 (140-440); Red Blood Count 2.43 M/mm3 (3.65-5.03); Red Cell Distribution Width 19.9 % (13.2-15.2)
[2018-11-06 09:10] LABS: Alanine Aminotransferase 15 units/L (7-56); Albumin 3.4 g/dL (3.9-5); BUN/Creatinine Ratio 15; Blood Urea Nitrogen 6 mg/dL (7-17); Calcium 8.2 mg/dL (8.4-10.2); Hemolysis Index 12
[2018-11-06] MEDS: Renal Caps PO SCH (09:34)
[2018-11-06] MEDS: DELTASONE PO SCH (09:34)
[2018-11-06] MEDS: SODIUM CHLORIDE FLUSH SYRINGE 10 ML IV SCH ×2 (09:35→21:39)
--- NOTE | 2018-11-06 10:45 | Progress Note ---
Assessment and Plan Cultures: 11/03/2018 blood culture: In process 11/04/2018 rapid HIV screen: Nonreactive A/P: 28-year-old female with previous cholecystectomy admitted with: 1) Fever, Resolved, with severe anemia, hyperbilirubinemia, elevated LDH, reticulocyte count of 12.96%: Suspect underlying hemolytic process which can cause fevers. Cold antibody related hemolysis can be seen with Mycoplasma inf ection, no evidence of pneumonia. Discussed with Dr. Julio, Katie was apparently negative. No schistocytes seen. Overall, underlying infectious process seems less likely. OK to give steroids from ID standpoint. No abx for now. HIV negative. No h/o travel. CT shows hepatosplenomegaly. Hepatits serology nonreactive. EBV interpretation suggestive of past EBV. - Dr. Hewitt following Recs: f/u hepatitis panel f/u Mycoplasma serology Clinically stable, ID is signing off [facility] M: [phone] O:[phone] Subjective Date of service: 11/06/18 Principal diagnosis: hyperbilirubinemia Interval history: patient seen and examined. Sitting up in bed. Reports no generalized pain or weakness. No fevers. Objective - Exam Narrative Exam: Constitutional: Alert, cooperative. No acute distress Head, Ears, Nose: Normocephalic, atraumatic. External ears, nose normal Eyes: Conjunctivae/corneas clear. + icterus and pallor. No ptosis. Neck: Supple, no meningeal signs Oral: dentition fair, no thrush Cardiovascular: S1, S2 normal. Respiratory: Good air entry, clear to auscultation bilaterally GI: Soft, non-tender; bowel sounds normal. No peritoneal signs Musculoskeletal: No pedal edema, no cyanosis. Skin: No rash or abscess Hem/Lymphatic: No palpable cervical or supraclavicular nodes. No lymphangitis Psych: Mood ok. Affect normal Neurological: Awake, alert, oriented. No gross abnormality - Constitutional Vitals: Vital Signs Temp Pulse Resp BP Pulse Ox 98.5 F 87 16 114/61 100 11/06/18 09:06 11/06/18 09:06 11/06/18 09:06 11/06/18 09:06 11/06/18 09:06 Temperature -Last 24 Hours Temperature 98.5 F Temperature 98.5 F Temperature 98.1 F Temperature 98.2 F Temperature 98.2 F - Labs CBC & Chem 7: 11/06/18 08:00 11/06/18 08:00 Labs: Abnormal lab results 11/04/18 11/06/18 11/06/18 Range/Units 02:29 08:00 08:00 WBC 14.5 H (4.5-11.0) K/mm3 RBC 2.43 L (3.65-5.03) M/mm3 Hgb 7.8 L (10.1-14.3) gm/dl Hct 21.2 L (30.3-42.9) % MCHC 37 H (30-34) % RDW 19.9 H (13.2-15.2) % Seg Neutrophils # 9.2 H (1.8-7.7) K/mm3 Chloride 107.6 H (98-107) mmol/L BUN 6 L (7-17) mg/dL Creatinine 0.4 L (0.7-1.2) mg/dL Calcium 8.2 L (8.4-10.2) mg/dL Total Bilirubin 4.40 H (0.1-1.2) mg/dL Albumin 3.4 L (3.9-5) g/dL EBV Capsid Ag IgG Titer 35.80 H (<18.00) U/mL EBV Nuclear Ag IgG Indx 37.50 H (<18.00) U/mL
--- NOTE | 2018-11-06 18:39 | Progress Note ---
Assessment and Plan - Patient Problems (1) Fever Current Visit: Yes Status: Acute Plan to address problem: Patient fever has resolved apparent injury seems to be resolving overall. Patient has increased strength fever curve is gone down jaundice is improving. Exact etiology unknown. Fever most likely secondary to hemolytic process. All antibiotics required at present time. (2) Hemolytic anemia Current Visit: Yes Status: Acute Plan to address problem: Hemolytic anemia bilirubin resolving. Anemia able after transfusion exact etiology unknown. Does not appear to be infectious etiology. Lupus ruled out. Blood disorders could potentially be myeloproliferative disease of leukemia of some sort but unlikely. TRAN negative still's disease are unremarkable. Patient did have symptoms when she was a little child. Could be something consistent with glycogen storage disease GAUCHes. Patient seems to be improving however. Could have further workup on an outpatient basis if she continues to improve. We'll await any hematology recommendations. Pierced to be hemolytic anemia. Patientcites. TRAN unremarkable no evidence of infection. (3) Hepatosplenomegaly Current Visit: Yes Status: Acute Plan to address problem: Secondary to the hemolytic process. Visualized on CT scan we'll observe. At present appears to be chronic. Secondary to hemolytic process. Hemolytic process appears to be resolving given decreased bilirubin decreased and liver function tests. Follow-up with sewage disposal engineer as an outpatient. Await the hematology recommendations. (4) Hyperbilirubinemia Current Visit: Yes Status: Resolved History Interval history: Patient states she feels much better today. Tolerating full well. Able to do up and out of bed. Jaundice is resolving. Patient states she's felt like this before and now she is feels she is getting better. No further fever. No nausea or vomiting. No chest pain. Patient spoke with his mother and states they have a history of spherocytosis. Hospitalist Physical - Constitutional Vitals: Temp Pulse Resp BP Pulse Ox 98.5 F 97 H 16 108/51 99 11/06/18 09:06 11/06/18 12:34 11/06/18 09:06 11/06/18 12:34 11/06/18 12:34 General appearance: Present: no acute distress, well-nourished, other (jaundice) - EENT Eyes: Present: PERRL, EOM intact. Absent: exopthalmos, miosis ENT: other (resolving jaundice.), no clear oral mucosa, no dentition normal, no hearing decreased, no poor dentition, no thrush - Neck Neck: Present: supple, normal ROM - Respiratory Respiratory: bilateral: CTA - Cardiovascular Rhythm: regular - Extremities Extremities: no ischemia, pulses intact, pulses symmetrical - Abdominal General gastrointestinal: soft, non-tender, non-distended, normal bowel sounds, hepatomegaly, splenomegaly, other (unable to appreciate hepatosplenomegaly.), no hypoactive bowel sounds, no absent bowel sounds - Integumentary Integumentary: Present: clear - Psychiatric Psychiatric: appropriate mood/affect, memory intact - Neurologic Neurologic: CNII-XII intact, moves all extremities Results - Labs CBC & Chem 7: 11/06/18 08:00 11/06/18 08:00 Labs: Laboratory Last Values WBC 14.5 K/mm3 (4.5-11.0) H 11/06/18 08:00 RBC 2.43 M/mm3 (3.65-5.03) L 11/06/18 08:00 Hgb 7.8 gm/dl (10.1-14.3) L 11/06/18 08:00 Hct 21.2 % (30.3-42.9) L 11/06/18 08:00 MCV 87 fl (79-97) 11/06/18 08:00 MCH 32 pg (28-32) 11/06/18 08:00 MCHC 37 % (30-34) H 11/06/18 08:00 RDW 19.9 % (13.2-15.2) H 11/06/18 08:00 Plt Count 274 K/mm3 (140-440) 11/06/18 08:00 Lymph % (Auto) 30.8 % (13.4-35.0) 11/06/18 08:00 Izard % (Auto) 4.7 % (0.0-7.3) 11/06/18 08:00 Eos % (Auto) 0.7 % (0.0-4.3) 11/06/18 08:00 Baso % (Auto) 0.3 % (0.0-1.8) 11/06/18 08:00 Lymph # 4.5 K/mm3 (1.2-5.4) 11/06/18 08:00 Izard # 0.7 K/mm3 (0.0-0.8) 07/10/19 08:00 Eos # 0.1 K/mm3 (0.0-0.4) 11/06/18 08:00 Baso # 0.0 K/mm3 (0.0-0.1) 11/06/18 08:00 Add Manual Diff Complete 11/04/18 02:29 Total Counted 100 11/04/18 02:29 Seg Neutrophils % 63.5 % (40.0-70.0) 11/06/18 08:00 Seg Neuts % (Manual) 70.0 % (40.0-70.0) 11/04/18 02:29 2.0 % 11/04/18 02:29 23.0 % (13.4-35.0) 11/04/18 02:29 Reactive Lymphs % (Man) 0 % 11/04/18 02:29 3.0 % (0.0-7.3) 11/04/18 02:29 2.0 % (0.0-4.3) 11/04/18 02:29 0 % (0.0-1.8) 11/04/18 02:29 0 % 11/04/18 02:29 0 % 11/04/18 02:29 0 % 11/04/18 02:29 0 % 11/04/18 02:29 Nucleated RBC % Not Reportable 11/04/18 02:29 Seg Neutrophils # 9.2 K/mm3 (1.8-7.7) H 11/06/18 08:00 Seg Neutrophils # Man 6.2 K/mm3 (1.8-7.7) 11/04/18 02:29 Band Neutrophils # 0.2 K/mm3 11/04/18 02:29 2.0 K/mm3 (1.2-5.4) 11/04/18 02:29 Abs React Lymphs (Man) 0.0 K/mm3 11/04/18 02:29 0.3 K/mm3 (0.0-0.8) 11/04/18 02:29 0.2 K/mm3 (0.0-0.4) 11/04/18 02:29 0.0 K/mm3 (0.0-0.1) 11/04/18 02:29 0.0 K/mm3 11/04/18 02:29 0.0 K/mm3 11/04/18 02:29 0.0 K/mm3 11/04/18 02:29 Blast Cells # 0.0 K/mm3 11/04/18 02:29 Pathologist Review 11/04/18 02:29 WBC Morphology Not Reportable 11/04/18 02:29 Hypersegmented Neuts Not Reportable 11/04/18 02:29 Hyposegmented Neuts Not Reportable 11/04/18 02:29 Hypogranular Neuts Not Reportable 11/04/18 02:29 Not Reportable 11/04/18 02:29 Not Reportable 11/04/18 02:29 Not Reportable 11/04/18 02:29 Not Reportable 11/04/18 02:29 Not Reportable 11/04/18 02:29 Not Reportable 11/04/18 02:29 Consistent w auto 11/04/18 02:29 Not Reportable 11/04/18 02:29 Plt Clumps, EDTA Not Reportable 11/04/18 02:29 Not Reportable 11/04/18 02:29 Not Reportable 11/04/18 02:29 Not Reportable 11/04/18 02:29 Plt Morphology Comment Not Reportable 11/04/18 02:29 RBC Morphology Not Reportable 11/04/18 02:29 Dimorphic RBCs Yes 11/04/18 02:29 1+ 11/04/18 02:29 Not Reportable 11/04/18 02:29 Not Reportable 11/04/18 02:29 1+ 11/04/18 02:29 Few 11/04/18 02:29 Not Reportable 11/04/18 02:29 1+ 11/04/18 02:29 Not Reportable 11/04/18 02:29 Not Reportable 11/04/18 02:29 Not Reportable 11/04/18 02:29 Rare 11/04/18 02:29 Few 11/04/18 02:29 Not Reportable 11/04/18 02:29 Not Reportable 11/04/18 02:29 Not Reportable 11/04/18 02:29 Not Reportable 11/04/18 02:29 Not Reportable 11/04/18 02:29 Not Reportable 11/04/18 02:29 Not Reportable 11/04/18 02:29 Acanthocytes (Spur) Not Reportable 11/04/18 02:29 Rouleaux Not Reportable 11/04/18 02:29 Not Reportable 11/04/18 02:29 Not Reportable 11/04/18 02:29 Not Reportable 11/04/18 02:29 Percent Retic 12.96 % (0.78-2.58) H 11/03/18 21:56 Not Reportable 11/04/18 02:29 Hem Pathologist Commnt Sent to pathology 11/04/18 02:29 PT 13.3 Sec. (12.2-14.9) 11/05/18 06:24 INR 1.04 (0.87-1.13) 11/05/18 06:24 APTT 24.4 Sec. (24.2-36.6) 11/03/18 20:17 VBG pH 7.513 (7.320-7.420) H 11/03/18 20:17 Sodium 138 mmol/L (137-145) 11/06/18 08:00 Potassium 3.7 mmol/L (3.6-5.0) 11/06/18 08:00 Chloride 107.6 mmol/L (98-107) H 11/06/18 08:00 Carbon Dioxide 22 mmol/L (22-30) 11/06/18 08:00 12 mmol/L 11/06/18 08:00 BUN 6 mg/dL (7-17) L 11/06/18 08:00 0.4 mg/dL (0.7-1.2) L 11/06/18 08:00 Estimated GFR > 60 ml/min 11/06/18 08:00 15 % 11/06/18 08:00 Glucose 92 mg/dL (65-100) 11/06/18 08:00 Lactic Acid 0.70 mmol/L (0.7-2.0) 11/03/18 23:12 Calcium 8.2 mg/dL (8.4-10.2) L 11/06/18 08:00 Magnesium 2.00 mg/dL (1.7-2.3) 11/03/18 20:17 Iron 81 ug/dL (37-170) 11/04/18 03:29 TIBC 160 mcg/dL (250-450) L 11/04/18 03:29 457.2 ng/mL (13.0-400.0) H 11/04/18 12:41 4.40 mg/dL (0.1-1.2) H 11/06/18 08:00 0.3 mg/dL (0-0.2) H 11/05/18 06:24 4.6 mg/dL 11/05/18 06:24 AST 18 units/L (5-40) 11/06/18 08:00 ALT 15 units/L (7-56) 11/06/18 08:00 39 units/L (35-129) 11/06/18 08:00 672 units/L (91-180) H 11/03/18 21:01 6.3 g/dL (6.3-8.2) 11/06/18 08:00 3.4 g/dL (3.9-5) L 11/06/18 08:00 1.2 % 11/06/18 08:00 15 units/L (13-60) 11/03/18 20:17 Vitamin B12 347.9 pg/mL (211-911) 11/04/18 12:42 5.10 ng/mL (7.3-26.0) L 11/04/18 12:42 HCG, Qual Negative (Negative) 11/03/18 20:17 Bhargavi (Yellow) 11/03/18 20:21 Slightly-cloudy (Clear) 11/03/18 20:21 6.0 (5.0-7.0) 11/03/18 20:21 Ur Specific [place] 1.025 (1.003-1.030) 11/03/18 20:21 100 mg/dl mg/dL (Negative) 11/03/18 20:21 Neg mg/dL (Negative) 11/03/18 20:21 Neg mg/dL (Negative) 11/03/18 20:21 Neg (Negative) 11/03/18 20:21 Neg (Negative) 11/03/18 20:21 Neg (Negative) 11/03/18 20:21 4.0 mg/dL (<2.0) 11/03/18 20:21 Ur Leukocyte Esterase Lg (Negative) 11/03/18 20:21 19.0 /HPF (0.0-6.0) H 11/03/18 20:21 3.0 /HPF (0.0-6.0) 11/03/18 20:21 U Epithel Cells (Auto) 18.0 /HPF (0-13.0) H 11/03/18 20:21 1+ /HPF (Negative) 11/03/18 20:21 Few /HPF 11/03/18 20:21 EBV Capsid Ag IgG, IgM <36.00 U/mL (<36.00) 11/04/18 02:29 EBV Capsid Ag IgG Titer 35.80 U/mL (<18.00) H 11/04/18 02:29 EBV Nuclear Ag IgG Indx 37.50 U/mL (<18.00) H 11/04/18 02:29 EBV Interpretation Past 11/04/18 02:29 Hepatitis A IgM Ab Non-reactive (NonReactive) 11/05/18 06:24 Hep Bs Antigen Non-reactive (Negative) 11/05/18 06:24 Hep B Core IgM Ab Non-reactive (NonReactive) 11/05/18 06:24 Non-reactive (NonReactive) 11/05/18 06:24 HIV 1&2 Antibody Rapid Non react (Non React) 11/04/18 02:29 Non react (Non React) 11/04/18 02:29 None seen 11/03/18 21:56 Blood Type O POSITIVE 11/04/18 01:01 Antibody Screen Negative 11/04/18 01:01 Direct Antiglob Test Negative 11/04/18 01:01 PATRIC, Poly Interpret Negative 11/04/18 01:01 Crossmatch See Detail 11/04/18 01:01 Active Medications - Current Medications Current Medications: Generic Name Dose Route Start Last Admin Trade Name Cesar PRN Reason Stop Dose Admin Acetaminophen 650 mg 11/04/18 02:29 11/04/18 05:31 Tylenol PO 650 mg Q4H PRN Administration Pain MILD(1-3)/Fever >100.5/ALVAREZ Sodium Chloride 1,000 mls @ 125 mls/hr 11/04/18 03:00 11/06/18 15:17 Nacl 0.9% 1000 Ml IV 125 mls/hr DIRECT LISANDRA Administration Multivit/Ca Carb/B Cmplx/FA/Prenat 1 cap 11/04/18 14:00 11/06/18 09:34 Renal Caps PO 1 cap QDAY LISANDRA Administration Ondansetron HCl 4 mg 11/04/18 02:29 Zofran IV Q8H PRN Nausea And Vomiting Prednisone 60 mg 11/04/18 14:00 11/06/18 09:34 Deltasone PO 60 mg QDAY LISANDRA Administration Sodium Chloride 10 ml 11/04/18 10:00 11/06/18 09:35 Sodium Chloride Flush Syringe 10 Ml IV 10 ml BID LISANDRA Administration Sodium Chloride 10 ml 11/04/18 02:29 Sodium Chloride Flush Syringe 10 Ml IV PRN PRN LINE FLUSH
[2018-11-06] MEDS ORDERED: AMBIEN PO PRN (21:16)
[2018-11-07] MEDS: NACL 0.9% 1000 ML 1,000 ML IV SCH (06:38)
[2018-11-07 07:45] VITALS: BP 108/60
[2018-11-07] MEDS: DELTASONE PO SCH (09:24)
[2018-11-07] MEDS: Renal Caps PO SCH (09:24)
[2018-11-07] MEDS: SODIUM CHLORIDE FLUSH SYRINGE 10 ML IV SCH (09:24)
--- NOTE | 2018-11-07 11:28 | Discharge Summary ---
Providers - Providers Date of Admission: 11/04/18 02:30 Date of discharge: 11/07/18 Attending physician: JEANIE DONAHUE 11/04/18 00:47 Consult to Physician [CONS] Urgent Comment: Dr. Bautista spoke with Dr. Julio @ 0039 Consulting Provider: CJ JULIO Physician Instructions: Reason For Exam: possible hemolytic anemia 11/04/18 00:53 Consult to Physician [CONS] Urgent Comment: Dr. Bautista spoke with Dr. Carolina @ 0116 Consulting Provider: JOSUE CAROLINA Physician Instructions: Reason For Exam: hyperbilirubinemia 11/04/18 02:29 Consult to Physician [CONS] Routine Comment: Dr. Yeager spoke with Dr. Pham @ 0219 Consulting Provider: JOEL FIGUEREDO Physician Instructions: Reason For Exam: fever, jaundice 11/07/18 10:21 Consult to Physician [CONS] Routine Comment: Consulting Provider: MARYBEL JEAN BAPTISTE Physician Instructions: Reason For Exam: anemia Primary care physician: SHERRI KHANNA MD Hospitalization Condition: Good Pertinent studies: Hepatic MRI showed hepatosplenomegaly. CT scan abdomen showed hepatosplenomegaly. No schistocytes no Spherocytes Hospital course: Patient 28-year-old presents with anemia associated with generalized weakness fatigue and body aches. Patient found to have hyperbilirubinemia. Exact etiology was unknown. Patient had a previous episode in 2010. Infectious etiology was ruled out. At the time with differential was of no illness causing hemolytic anemia. Infectious etiology ruled out patient normal hair fever. She defervesced well over several days without any body aches her energy return fatigue resolved and fever resolved. There was no evidence of obstruction. evidence of bleeding. ama was negative ama negative hepatic panel negative. patient had profound anemia with normal portable hemoglobin. after transfusion patient's h&h remained stable at 8 and 22. patient had high direct bilirubin admission resolved. patient's direct and indirect bilirubin return in ast t return to normal. patient received oral steroids. potentially this was associated patient will follow up outpatient with hematology. will give steroid taper as well. Disposition: TO HOME OR SELFCARE - Discharge Diagnoses (1) Fever Status: Resolved (2) Hemolytic anemia Status: Acute Qualifiers: Hemolytic anemia type: hereditary hemolytic anemia, unspecified Qualified Code(s): D58.9 - Hereditary hemolytic anemia, unspecified (3) Hepatosplenomegaly Status: Chronic (4) Hyperbilirubinemia Status: Resolved Core Measure Documentation - Palliative Care Palliative Care/ Comfort Measures: Not Applicable - Core Measures Any of the following diagnoses?: none Exam - Constitutional Vitals: Temp Pulse Resp BP Pulse Ox 98.2 F 82 14 108/60 98 11/07/18 07:44 11/07/18 07:44 11/07/18 07:44 11/07/18 07:44 11/07/18 07:44 General appearance: Present: no acute distress, well-nourished - EENT Eyes: Present: PERRL ENT: hearing intact, clear oral mucosa - Neck Neck: Present: supple, normal ROM - Respiratory Respiratory effort: normal Respiratory: bilateral: CTA - Cardiovascular Heart Sounds: Present: S1 & S2. Absent: rub, click - Extremities Extremities: pulses symmetrical, No edema Peripheral Pulses: within normal limits - Abdominal General gastrointestinal: Present: soft, non-tender, non-distended, normal bowel sounds Female genitourinary: Present: normal - Integumentary Integumentary: Present: clear, warm, dry - Musculoskeletal Musculoskeletal: gait normal, strength equal bilaterally - Psychiatric Psychiatric: appropriate mood/affect, intact judgment & insight - Neurologic Neurologic: CNII-XII intact, moves all extremities Plan Activity: no restrictions Diet: regular Follow up with: SHERRI KHANNA MD [Primary Care Provider] - 3-5 Days Prescriptions: Folic Acid/Vit B Comp W-C [Renal Caps] 1 cap PO QDAY #30 capsule
[2018-11-07 21:01] LABS: ANA Screen, IFA Negative (Negative)
== END 2018-11-07 14:46 | disposition home or self-care (01) | DRG 442 ==
LOC: ED 16:27 → 4A 11-04 02:30
PROVIDERS: ADMIT Internal Medicine; ATTEND Internal Medicine
PROC: 30233N1 Transfusion of Nonautologous Red Blood Cells into Peripheral Vein, Percutaneous Approach (ICD-10-PCS; principal; 2018-11-04)
DX: R17 Unspecified jaundice (principal); D58.9 Hereditary hemolytic anemia, unspecified; R16.2 Hepatomegaly with splenomegaly, not elsewhere classified; Z90.49 Acquired absence of other specified parts of digestive tract; Z82.49 Family history of ischemic heart disease and other diseases of the circulatory system; Z83.2 Family history of diseases of the blood and blood-forming organs and certain disorders involving the immune mechanism
CPT/HCPCS: 36415; 36430; 74177; 74183; 80048; 80053; 80074; 80076; 81001; 82140; 82607; 82728; 82747; 82805; 83010; 83520; 83550; 83615; 83690; 83735; 84703; 85007; 85025; 85027; 85045; 85610; 85730; 86038; 86665; 86738; 86850; 86880; 86900; 86901; 86920; 87040; 87086; 87497; 87806; 93005; 93010; G0378; A9577; J0696; J1200; J7030; J7040; J7512; P9016; Q9967

== ENCOUNTER 2019-05-05 20:08 | Emergency (ER) | payer MEDICAID ==
[2019-05-05 20:15] VITALS: BP 102/61
--- NOTE | 2019-05-05 20:49 | Emergency Department Report ---
Blank Doc - Documentation Documentation: 28-year-old female that presents with generalized weakness and fatigue. This initial assessment/diagnostic orders/clinical plan/treatment(s) is/are subject to change based on patient's health status, clinical progression and re- assessment by fellow clinical providers in the ED. Further treatment and workup at subsequent clinical providers discretion. Patient/guardians urged not to elope from the ED as their condition may be serious if not clinically assessed and managed. Initial orders include: 1- Patient sent to [facility] for further evaluation and treatment 2- UA 3- labs
[2019-05-05 21:31] LABS: Basophils # (Auto) 0.1 K/mm3 (0.0-0.1); Basophils % (Auto) 0.9 % (0.0-1.8); Eosinophils # (Auto) 0.3 K/mm3 (0.0-0.4); Eosinophils % (Auto) 3.3 % (0.0-4.3); Lymphocytes # (Auto) 2.6 K/mm3 (1.2-5.4); Lymphocytes % (Auto) 27.7 % (13.4-35.0); Mean Corpuscular HGB Conc 37 % (30-34); Mean Corpuscular Volume 85 fl (79-97); Monocytes # (Auto) 0.5 K/mm3 (0.0-0.8); Monocytes % (Auto) 5.8 % (0.0-7.3); Platelet Count 337 K/mm3 (140-440); Red Blood Count 3.61 M/mm3 (3.65-5.03); Red Cell Distribution Width 19.2 % (13.2-15.2)
[2019-05-05 21:35] LABS: Hematocrit 30.7 % (30.3-42.9); Hemoglobin 11.5 gm/dl (10.1-14.3)
[2019-05-05 21:51] LABS: BUN/Creatinine Ratio 16; Blood Urea Nitrogen 8 mg/dL (7-17); Hemolysis Index 5
[2019-05-05 22:23] LABS: Amorphous Crystals,Urine Few; Bilirubin,Urine NEG (Negative); Blood,Urine MOD (Negative); Color,Urine Amber (Yellow); Mucus,Urine 3+ /HPF; Protein,Urine <15 mg/dL mg/dL (Negative)
== END 2019-05-06 02:20 | disposition left against medical advice (07) ==
LOC: ED 20:08
DX: R53.1 Weakness (principal); Z53.21 Procedure and treatment not carried out due to patient leaving prior to being seen by health care provider
CPT/HCPCS: 36415; 80048; 81001; 84703; 85025

== ENCOUNTER 2019-08-02 11:35 | Emergency (ER) | payer MEDICAID ==
[2019-08-02 11:43] VITALS: BP 106/63
[2019-08-02] MEDS ORDERED: HYDROcodone/ACETAMINOPHEN 5-325 MG TAB PO ONE (11:58)
[2019-08-02] MEDS ORDERED: LIDOCAINE (1%) 10 MG/1 ML VIAL 20 ML MDV INFILTRATI ONE (11:58)
[2019-08-02] MEDS ORDERED: TETANUS,DIPH,PERTUSS(ACELL) VACCINE 0.5 ML SYRINGE IM ONE (12:14)
[2019-08-02] MEDS ORDERED: SODIUM CHLORIDE 0.9% IRR 500 ML BOTTLE IR ONE (12:16)
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
== END 2019-08-02 13:55 | disposition home or self-care (01) ==
LOC: ED 11:35
DX: S51.812A Laceration without foreign body of left forearm, initial encounter (principal); W26.0XXA Contact with knife, initial encounter; Y93.89 Activity, other specified; Y92.89 Other specified places as the place of occurrence of the external cause; Y99.8 Other external cause status
CPT/HCPCS: 90471; 90715; 99282

== ENCOUNTER 2019-08-12 15:27 | Emergency (ER) | payer MEDICAID ==
[2019-08-12 15:38] VITALS: BP 106/64
--- NOTE | 2019-08-12 16:44 | Emergency Department Report ---
Suture/Staple Removal - [facility] Chief Complaint: Laceration/Recheck/Suture Stated Complaint: STITCHES REMOVED Time Seen by Provider: 08/12/19 16:07 When Sutures or [place] Placed: 8-10 Days Ago Wound Location: left forearm ED Review of Systems ROS: Stated complaint: STITCHES REMOVED Other details as noted in HPI Constitutional: denies: chills, fever Eyes: denies: eye pain, eye discharge, vision change ENT: denies: ear pain, throat pain Respiratory: denies: cough, shortness of breath, wheezing Cardiovascular: denies: chest pain, palpitations Endocrine: no symptoms reported Gastrointestinal: denies: abdominal pain, nausea, diarrhea Genitourinary: denies: urgency, dysuria, discharge Musculoskeletal: denies: back pain, joint swelling, arthralgia Skin: denies: rash, lesions Neurological: denies: headache, weakness, paresthesias Psychiatric: denies: anxiety, depression Hematological/Lymphatic: denies: easy bleeding, easy bruising ED Past Medical Hx - Past Medical History Previous Medical History?: No Hx Congestive Heart Failure: No Hx Diabetes: No Hx Asthma: No Hx COPD: No Hx HIV: No - Surgical History Past Surgical History?: Yes Hx Cholecystectomy: Yes - Social History Smoking Status: Never Smoker Substance Use Type: None - Medications Home Medications: Home Medications Medication Instructions Recorded Confirmed Last Taken Type Folic Acid/Vit B Comp W-C [Renal 1 cap PO QDAY #30 capsule 11/07/18 Unknown Rx Caps] Prednisone [predniSONE (Johnnie) ER 10 mg PO QDAY #20 tablet. 11/07/18 Unknown Rx TAB] Sulfamethoxazole/Trimethoprim 1 each PO BID #14 tablet 08/12/19 Unknown Rx [Bactrim DS TAB] Suture Removal Exam - Exam General: Vital signs noted. No distress. Alert and acting appropriately. Wound: Yes Pathologic Erythema, Yes Tenderness, No Drainage, No Pus, No Wound Dehiscence Other Systems: All other systems reviewed and are unremarkable. ED Course Vital Signs 08/12/19 08/12/19 15:30 15:35 Temperature 98.8 F 98.8 F Pulse Rate 75 75 Respiratory 18 15 Rate Blood Pressure 106/64 106/64 O2 Sat by Pulse 100 100 Oximetry - Reevaluation(s) Reevaluation #1: 08/12/19 16:44 Patient is speaking in full sentences with no signs of distress noted. ED Recheck MDM - Medical Decision Making This is a 29-year-old female that presents with suture removal. She is stable and was examined by me. Total of 10 sutures has been removed and patient tolerated well. No signs of wound dehiscence or drainage. There is some cellulitis. Will prescribed bactrim at discharge. Patient was referred to Follow-up with a primary care doctor in 3-5 days or if symptoms worsen and continue return to emergency room as soon as possible. At time of discharge, the patient does not seem toxic or ill in appearance. No acute signs of distress noted. Patient agrees to discharge treatment plan of care. No further questions noted by the patient. Critical care attestation.: If time is entered above; I have spent that time in minutes in the direct care of this critically ill patient, excluding procedure time. ED Disposition Clinical Impression: Encounter for removal of sutures Cellulitis Qualifiers: Site of cellulitis: extremity Site of cellulitis of extremity: upper extremity Laterality: left Qualified Code(s): L03.114 - Cellulitis of left upper limb Disposition: DC-01 TO HOME OR SELFCARE Is pt being admited?: No Does the pt Need Aspirin: No Condition: Stable Instructions: Cellulitis (ED), Suture Removal (ED) Additional Instructions: Follow-up with a primary care doctor in 3-5 days or if symptoms worsen and continue return to emergency room as soon as possible. Prescriptions: Sulfamethoxazole/Trimethoprim [Bactrim DS TAB] 1 each PO BID #14 tablet Referrals: SIMEON LOPEZ MD [Primary Care Provider] - 3-5 Days GAYATRI DORMAN MD [Staff Physician] - 3-5 Days [facility] [Provider Group] - 3-5 Days Forms: Work/School Release Form(ED)
== END 2019-08-12 17:10 | disposition home or self-care (01) ==
LOC: ED 15:27
DX: L03.114 Cellulitis of left upper limb (principal); Z90.49 Acquired absence of other specified parts of digestive tract; Z79.899 Other long term (current) drug therapy; Z48.02 Encounter for removal of sutures
CPT/HCPCS: 99281